=== PATIENT | male | born 1985 | race Caucasian/White ===

== ENCOUNTER 2018-11-28 03:08 | Observation (INO) | payer BC, OTHER ==
[2018-11-28] MEDS ORDERED: Sodium Chloride 0.9% 10 ML Syringe FLUSH PRN (03:28)
[2018-11-28] MEDS ORDERED: Sodium Chloride 0.9% 2.5 ML Syringe FLUSH PRN (03:28)
[2018-11-28] MEDS ORDERED: Ketorolac 30 MG/ML SDV IVPUSH ONE (03:29)
[2018-11-28] MEDS ORDERED: Sodium Chloride 0.9% 1,000 ML IV ONE (03:29)
[2018-11-28] MEDS ORDERED: Morphine 2 MG/ML Syringe IVPUSH ONE (03:33)
[2018-11-28] MEDS ORDERED: Ondansetron 4 MG/2 ML SDV IVPUSH ONE (03:34)
--- NOTE | 2018-11-28 03:39 | EDM.PDOC ---
ED HPI GENERAL MEDICAL PROBLEM - General Chief Complaint: Abdominal Pain Stated Complaint: FEVER, LOWER ABDOMINAL PAIN Time Seen by Provider: 11/28/18 03:09 - History of Present Illness INITIAL COMMENTS - FREE TEXT/NARRATIVE: HISTORY AND PHYSICAL: History of present illness: The patient is a 33-year-old male who has no significant GI history but does have a history of hypertension as well as inguinal hernia repair when he was 1 years old and a lap band placement and removal in the past who presents to the ED with complaints of overall ill feeling right lower quadrant pain and fevers that started about 2 PM yesterday afternoon. The patient said that initially he felt like it was gas but it seems more severe than usual but he did take an over -the-counter medication prep for this and it did not help. He noticed that he was having fevers and has been taking Tylenol for that with a documented temp of 104 at 9 PM and a temp of "106" an hour or so ago for which she took extra strength Tylenol and is now afebrile. The patient had no cough or upper respiratory tract infection symptoms sore throat headache neck pain ear pain or sinus congestion but no chest pain or shortness of breath. He said he didn't have any nausea vomiting or diarrhea no flank pain and no urinary complaints. He said that he's had similar pain to what he was experiencing this afternoon but not as severe in the past when he had food poisoning which is why he took the [id number] preps for gas and antidiarrhea. He went to sleep and woke up and morning with intense pain in the right lower quadrant radiating to left lower quadrant and left mid abdomen and came here to the ED. He says the pain is a stabbing pain in his deep. He's had no recent trauma. The patient denies any testicular pain or swelling nor any hernial masses that he is appreciated. The patient's last by mouth intake was a hot chocolate drink at 8:30 PM prior to that he had some salad. Review of systems: As per history of present illness and below otherwise all systems reviewed and negative. Past medical history: As per history of present illness and as reviewed below otherwise noncontributory. Surgical history: As per history of present illness and as reviewed below otherwise noncontributory. Social history: No reported history of drug or alcohol abuse. Family history: As per history of present illness and as reviewed below otherwise noncontributory. Physical exam: General: Well-developed well-nourished mildly overweight man who is nontoxic and moves easily in the ED has a somewhat flushed look to his face. Vital signs are noted by me. HEENT: Atraumatic, normocephalic, negative for conjunctival pallor or scleral icterus, mucous membranes tacky throat clear, neck supple, nontender, trachea midline. Lungs: Clear to auscultation, breath sounds equal bilaterally, chest nontender. Heart: S1S2, regular rhythm slightly tachycardic rate on my evaluation but no overt murmurs Abdomen: Soft, nondistended, bowel sounds are hypoactive and there is no tympany on percussion and there is mild diffuse tenderness throughout the abdomen but more exquisite tenderness in the right lower quadrant without any rebound or guarding. Negative for masses or hepatosplenomegaly. Negative for costovertebral tenderness. I do not appreciate any inguinal tenderness bilaterally or any gross hernial masses. Pelvis: Stable nontender. Genitourinary: Deferred. Rectal: Deferred. Extremities: Atraumatic, negative for cords or calf pain. Neurovascular unremarkable. No pedal edema and full range of motion Neuro: Awake, alert, oriented. Cranial nerves II through XII unremarkable. Cerebellum unremarkable. Motor and sensory unremarkable throughout. Exam nonfocal. Diagnostics: CBC CMP UA with reflex, lactic acid CT scan of the abdomen and pelvis Therapeutics: IV, IV fluids, Toradol Zofran and morphine, Levaquin and Flagyl 0513: Case was discussed with our surgeon mortgage operations manager Dr. Kyle Arriaza will be on consult and I will notify Dr. Mittal's admission 0515: Case was discussed with Dr. Mittal who accepts the patient for observation admission and is aware of the case. I've also discussed all testing results with the patient including the need for admission and his incidental disc herniation. His pain is much improved and he remains afebrile here in the ED Impression: Acute sigmoid diverticulitis Incidental posterior disc herniation out L4-L5 asymptomatic Definitive disposition and diagnosis as appropriate pending reevaluation and review of above. abdomen Pain Score (Numeric/FACES): 6 - Related Data Allergies Allergy/AdvReac Type Severity Reaction Status Date / Time prednisone Allergy Hives Verified 09/13/19 03:22 Home Meds: Home Meds Hydrochlorothiazide [Microzide] 12.5 mg PO DAILY 01/17/18 [History] Lisinopril 40 mg PO DAILY 01/17/18 [History] amLODIPine Besylate [Amlodipine Besylate] 10 mg PO DAILY 01/17/18 [History] Diclofenac Sodium [Voltaren] 75 mg PO BID PRN 11/28/18 [History] Past Medical History Cardiovascular History: Reports: Hypertension Respiratory History: Reports: Sleep Apnea Other Respiratory History: "mild sleep apnea" does not use CPAP, snores when on his back Gastrointestinal History: Reports: None Genitourinary History: Reports: None Musculoskeletal History: Reports: Back Pain, Chronic Neurological History: Reports: None Endocrine/Metabolic History: Reports: Obesity/BMI 30+ Immunologic History: Reports: Other (See Below) Other Immunologic History: 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, completely recovered - Infectious Disease History Infectious Disease History: Reports: Chicken Pox - Past Surgical History Head Surgeries/Procedures: Reports: None Cardiovascular Surgical History: Reports: None Respiratory Surgical History: Reports: None GI Surgical History: Reports: Bariatric Procedure Other GI Surgeries/Procedures: lap band placement 2008, removal of lap band 2017 Male Surgical History: Reports: None Endocrine Surgical History: Reports: None Musculoskeletal Surgical History: Reports: Arthroscopic Knee, Shoulder Surgery Other Musculoskeletal Surgeries/Procedures:: left labrum repair, left knee arthroscopy, L sholuder Social & Family History - Family History Family Medical History: Unobtainable - Tobacco Use Smoking Status *Q: Never Smoker Second Hand Smoke Exposure: No - Caffeine Use Caffeine Use: Reports: Energy Drinks - Recreational Drug Use Recreational Drug Use: No ED ROS GENERAL - Review of Systems Review Of Systems: ROS reveals no pertinent complaints other than HPI. ED EXAM, GENERAL - Physical Exam Exam: See Below (See dictation) Course - Vital Signs Last Recorded V/S: Last Vital Signs Temp 36.1 C 11/28/18 04:33 Pulse 92 11/28/18 04:33 Resp 18 11/28/18 04:33 BP 136/91 H 11/28/18 04:33 Pulse Ox 98 11/28/18 04:33 - Orders/Labs/Meds Orders: Active Orders 24 hr Category Date Time Status Levofloxacin/Dextrose 5%-Water [Levaquin in D5W 500 MG/ Med 11/28/18 05:09 Active 100 ML] 500 mg Premix Bag 1 bag IV ONETIME Sodium Chloride 0.9% [Saline Flush] Med 11/28/18 03:28 Active 10 ml FLUSH ASDIRECTED PRN Sodium Chloride 0.9% [Saline Flush] Med 11/28/18 03:28 Active 2.5 ml FLUSH ASDIRECTED PRN metroNIDAZOLE/Normal Saline [Flagyl 500 MG in NS 100 ML Med 11/28/18 05:09 Active ] 500 mg Premix Bag 1 bag IV ONETIME Saline Lock Insert [OM.PC] Stat Oth 11/28/18 03:28 Ordered Medication Orders Levofloxacin/Dextrose 500 mg/ (Premix) 100 mls @ 100 mls/hr IV ONETIME ONE Stop: 11/28/18 06:08 Metronidazole 500 mg/ Premix 100 mls @ 100 mls/hr IV ONETIME ONE Stop: 11/28/18 06:08 Sodium Chloride (Saline Flush) 10 ml FLUSH ASDIRECTED PRN PRN Reason: Keep Vein Open Sodium Chloride (Saline Flush) 2.5 ml FLUSH ASDIRECTED PRN PRN Reason: Keep Vein Open Labs: Laboratory Tests 11/28/18 11/28/18 11/28/18 Range/Units 03:25 03:25 03:25 WBC 15.80 H (4.0-11.0) K/uL RBC 5.53 (4.50-5.90) M/uL Hgb 15.8 (13.0-17.0) g/dL Hct 45.6 (38.0-50.0) % MCV 82.5 (80.0-98.0) fL MCH 28.6 (27.0-32.0) pg MCHC 34.6 (31.0-37.0) g/dL RDW Std Deviation 42.2 (28.0-62.0) fl RDW Coeff of Miguelangel 14 (11.0-15.0) % Plt Count 216 (150-400) K/uL MPV 10.50 (7.40-12.00) fL Neut % (Auto) 69.0 (48.0-80.0) % Lymph % (Auto) 21.7 (16.0-40.0) % Foster % (Auto) 7.8 (0.0-15.0) % Eos % (Auto) 1.2 (0.0-7.0) % Baso % (Auto) 0.3 (0.0-1.5) % Neut # (Auto) 10.9 H (1.4-5.7) K/uL Lymph # (Auto) 3.4 H (0.6-2.4) K/uL Foster # (Auto) 1.2 H (0.0-0.8) K/uL Eos # (Auto) 0.2 (0.0-0.7) K/uL Baso # (Auto) 0.0 (0.0-0.1) K/uL Nucleated RBC % 0.0 /100WBC Nucleated RBCs # 0 K/uL Lactate 1.3 (0.20-2.00) mmol/L Sodium 139 (136-148) mmol/L Potassium 4.3 (3.5-5.1) mmol/L Chloride 101 (98-107) mmol/L Carbon Dioxide 24.4 (21.0-32.0) mmol/L BUN 13 (7.0-18.0) mg/dL Creatinine 1.0 (0.8-1.3) mg/dL Est Cr Clr Drug Dosing 117.63 mL/min Estimated GFR (MDRD) > 60.0 ml/min Glucose 120 H (74-106) mg/dL Calcium 10.2 H (8.5-10.1) mg/dL Total Bilirubin 0.9 (0.2-1.0) mg/dL AST 40 H (15-37) IU/L ALT 67 H (14-63) IU/L Alkaline Phosphatase 68 (46-116) U/L Total Protein 8.0 (6.4-8.2) g/dL Albumin 4.2 (3.4-5.0) g/dL Globulin 3.8 (2.6-4.0) g/dL Albumin/Globulin Ratio 1.1 (0.9-1.6) Urine Color Urine Appearance Urine pH (5.0-8.0) Ur Specific [place] (1.001-1.035) Urine Protein (NEGATIVE) mg/dL Urine Glucose (UA) (NEGATIVE) mg/dL Urine Ketones (NEGATIVE) mg/dL Urine Occult Blood (NEGATIVE) Urine Nitrite (NEGATIVE) Urine Bilirubin (NEGATIVE) Urine Urobilinogen (<2.0) EU/dL Ur Leukocyte Esterase (NEGATIVE) Urine RBC (0-2/HPF) Urine WBC (0-5/HPF) Ur Epithelial Cells (NONE-FEW) Urine Bacteria (NEGATIVE) 11/28/18 Range/Units 03:25 WBC (4.0-11.0) K/uL RBC (4.50-5.90) M/uL Hgb (13.0-17.0) g/dL Hct (38.0-50.0) % MCV (80.0-98.0) fL MCH (27.0-32.0) pg MCHC (31.0-37.0) g/dL RDW Std Deviation (28.0-62.0) fl RDW Coeff of Miguelangel (11.0-15.0) % Plt Count (150-400) K/uL MPV (7.40-12.00) fL Neut % (Auto) (48.0-80.0) % Lymph % (Auto) (16.0-40.0) % Foster % (Auto) (0.0-15.0) % Eos % (Auto) (0.0-7.0) % Baso % (Auto) (0.0-1.5) % Neut # (Auto) (1.4-5.7) K/uL Lymph # (Auto) (0.6-2.4) K/uL Foster # (Auto) (0.0-0.8) K/uL Eos # (Auto) (0.0-0.7) K/uL Baso # (Auto) (0.0-0.1) K/uL Nucleated RBC % /100WBC Nucleated RBCs # K/uL Lactate (0.20-2.00) mmol/L Sodium (136-148) mmol/L Potassium (3.5-5.1) mmol/L Chloride (98-107) mmol/L Carbon Dioxide (21.0-32.0) mmol/L BUN (7.0-18.0) mg/dL Creatinine (0.8-1.3) mg/dL Est Cr Clr Drug Dosing mL/min Estimated GFR (MDRD) ml/min Glucose (74-106) mg/dL Calcium (8.5-10.1) mg/dL Total Bilirubin (0.2-1.0) mg/dL AST (15-37) IU/L ALT (14-63) IU/L Alkaline Phosphatase (46-116) U/L Total Protein (6.4-8.2) g/dL Albumin (3.4-5.0) g/dL Globulin (2.6-4.0) g/dL Albumin/Globulin Ratio (0.9-1.6) Urine Color YELLOW Urine Appearance CLEAR Urine pH 6.0 (5.0-8.0) Ur Specific [place] 1.010 (1.001-1.035) Urine Protein TRACE H (NEGATIVE) mg/dL Urine Glucose (UA) NEGATIVE (NEGATIVE) mg/dL Urine Ketones NEGATIVE (NEGATIVE) mg/dL Urine Occult Blood NEGATIVE (NEGATIVE) Urine Nitrite NEGATIVE (NEGATIVE) Urine Bilirubin NEGATIVE (NEGATIVE) Urine Urobilinogen 0.2 (<2.0) EU/dL Ur Leukocyte Esterase NEGATIVE (NEGATIVE) Urine RBC NONE SEEN (0-2/HPF) Urine WBC NONE SEEN (0-5/HPF) Ur Epithelial Cells RARE (NONE-FEW) Urine Bacteria NOT SEEN (NEGATIVE) Meds: Medications Generic Name Dose Route Start Last Admin Trade Name Freq PRN Reason Stop Dose Admin Levofloxacin/Dextrose 500 mg/ 100 mls @ 100 mls/hr 11/28/18 05:09 Premix IV 11/28/18 06:08 ONETIME ONE Metronidazole 500 mg/ Premix 100 mls @ 100 mls/hr 11/28/18 05:09 IV 11/28/18 06:08 ONETIME ONE Sodium Chloride 10 ml 11/28/18 03:28 Saline Flush FLUSH ASDIRECTED PRN Keep Vein Open Sodium Chloride 2.5 ml 11/28/18 03:28 Saline Flush FLUSH ASDIRECTED PRN Keep Vein Open Discontinued Medications Generic Name Dose Route Start Last Admin Trade Name Freq PRN Reason Stop Dose Admin Sodium Chloride 1,000 mls @ 999 mls/hr 11/28/18 03:29 11/28/18 03:40 Normal Saline IV 11/28/18 04:29 999 mls/hr STAT ONE Administration Iopamidol 100 ml 11/28/18 04:23 11/28/18 04:24 Isovue Multipack-370 (76%) IVPUSH 11/28/18 04:24 100 ml ONETIME STA Administration Ketorolac Tromethamine 30 mg 11/28/18 03:29 11/28/18 03:40 Toradol IVPUSH 11/28/18 03:30 30 mg ONETIME ONE Administration Morphine Sulfate 4 mg 11/28/18 03:33 11/28/18 03:42 Morphine IVPUSH 11/28/18 03:34 4 mg ONETIME ONE Administration Ondansetron HCl 4 mg 11/28/18 03:34 11/28/18 03:40 Zofran IVPUSH 11/28/18 03:35 4 mg ONETIME ONE Administration Departure - Departure Time of Disposition: 05:15 Disposition: Refer to Observation Condition: Good Clinical Impression: Diverticulitis - Discharge Information Referrals: Dragan Waite MD [Primary Care Provider] - Forms: ED Department Discharge - My Orders Last 24 Hours: My Active Orders 11/28/18 03:28 Sodium Chloride 0.9% [Saline Flush] 10 ml FLUSH ASDIRECTED PRN Sodium Chloride 0.9% [Saline Flush] 2.5 ml FLUSH ASDIRECTED PRN Saline Lock Insert [OM.PC] Stat 11/28/18 05:09 Levofloxacin/Dextrose 5%-Water [Levaquin in D5W 500 MG/100 ML] 500 mg Premix Bag 1 bag IV ONETIME metroNIDAZOLE/Normal Saline [Flagyl 500 MG in NS 100 ML] 500 mg Premix Bag 1 bag IV ONETIME - Assessment/Plan Last 24 Hours: My Active Orders 11/28/18 03:28 Sodium Chloride 0.9% [Saline Flush] 10 ml FLUSH ASDIRECTED PRN Sodium Chloride 0.9% [Saline Flush] 2.5 ml FLUSH ASDIRECTED PRN Saline Lock Insert [OM.PC] Stat 11/28/18 05:09 Levofloxacin/Dextrose 5%-Water [Levaquin in D5W 500 MG/100 ML] 500 mg Premix Bag 1 bag IV ONETIME metroNIDAZOLE/Normal Saline [Flagyl 500 MG in NS 100 ML] 500 mg Premix Bag 1 bag IV ONETIME
[2018-11-28 03:58] LABS: BLOOD UREA NITROGEN,BUN 13 mg/dL (7.0-18.0); CARBON DIOXIDE,CO2 24.4 mmol/L (21.0-32.0); CHLORIDE,CL 101 mmol/L (98-107); GLUCOSE RANDOM 120 mg/dL (74-106); POTASSIUM,K 4.3 mmol/L (3.5-5.1); SODIUM,NA 139 mmol/L (136-148)
[2018-11-28] MEDS ORDERED: Iopamidol 755 MG/ML 500 ML Multipack Bottle IVPUSH STA (04:23)
--- NOTE | 2018-11-28 05:02 | CT ---
INDICATION: Lower abdominal pain TECHNIQUE: CT Abdomen and pelvis with i.v. contrast. Coronal and sagittal reformats were obtained. CONTRAST: 100 mL Isovue 370 COMPARISON: None FINDINGS: Lower chest: Unremarkable. Ill-defined soft tissue is seen in the retroareolar complexes of the chest bilaterally and most likely due to gynecomastia. Liver: Moderate fatty infiltration of the liver is noted. Spleen: Unremarkable. Pancreas: Unremarkable. Gallbladder: Unremarkable. Kidney: Unremarkable. No kidney or ureteral stones or obstruction seen. Adrenal: Unremarkable. Bowel: Severe wall thickening with surrounding inflammatory changes and diverticulosis is seen in the proximal sigmoid colon. The wall thickening has scattered low densities with possible shouldering on image 141. The appendix is normal in appearance and size. Vascular: Unremarkable. Lymph: Unremarkable. Peritoneum: Unremarkable. No pneumoperitoneum is seen. No significant ascites is noted. Pelvis: Unremarkable. Soft tissue: Unremarkable. Bone: Bilateral chronic pars defects of L5 noted with no significant anterolisthesis of L5-S1 noted. A large posterior disc osteophyte complex is present at L4-5 with trace retrolisthesis. These findings contribute to central canal stenosis. IMPRESSIONS: 1. Severe wall thickening with surrounding inflammatory changes and diverticulosis is seen in the proximal sigmoid colon. Findings likely due to acute diverticulitis. 2. The wall thickening has scattered low densities with possible shouldering on image 141. This may be due to inflammatory phlegmon. Imaging follow-up may be helpful to exclude subsequent development of peridiverticular or intramural abscesses or underlying mucosal abnormalities. 3. A large posterior disc osteophyte complex is present at L4-5 with trace retrolisthesis. These findings contribute to central canal stenosis. Dictated by Delvin Almazan MD @ 11/28/2018 5:01:47 AM Please note that all CT scans at this facility use dose modulation, iterative reconstruction, and/or weight-based dosing when appropriate to reduce radiation dose to as low as reasonably achievable. Dictated by: Delvin Almazan MD @ 11/28/2018 05:01:53 (Electronically Signed)
[2018-11-28] MEDS ORDERED: Levofloxacin/Dextrose 5%-Water 500 MG in Premix Bag 1 BAG IV ONE (05:09)
[2018-11-28] MEDS ORDERED: metroNIDAZOLE/Normal Saline 500 MG in Premix Bag 1 BAG IV ONE (05:09)
[2018-11-28] MEDS: Sodium Chloride 0.9% 1,000 ML IV SCH ×3 (05:39→15:29)
[2018-11-28] MEDS ORDERED: Morphine 2 MG/ML Syringe IVPUSH PRN (06:44)
--- NOTE | 2018-11-28 06:51 | PCM.HP.2 ---
H&P History of Present Illness - General Date of Service: 11/28/18 Admit Problem/Dx: Admission Diagnosis/Problem Admission Diagnosis/Problem Diverticulitis Source of Information: Patient History Limitations: Reports: No Limitations - History of Present Illness Initial Comments - Free Text/Narative: The patient is an otherwise healthy 33-year-old gentleman who had presented to the emergency department with a complaint of fever and lower abdominal pain. The patient reports that he had a significant fever at home and had been tested at 106F. Further, the patient reports that he had lower abdominal pain which started approximately 2 days ago and had begin progressively worse. He is described as sharp and stabbing and is predominantly in the lower right quadrant radiate into the lower left quadrant and mid abdomen. When the patient awoke this morning the pain was more intense. The patient had denied any nausea or vomiting. He's had no diarrhea or constipation although he feels like he is to have a bowel movement. The patient has had no relieving factors and his abdominal pain is been worsened by eating. The patient has been taking medication for hypertension but otherwise is healthy. Onset of Symptoms: Reports: Sudden Duration of Symptoms: Reports: Day(s):, Getting Worse Location: Reports: Abdomen Quality: Reports: Stabbing, Throbbing Severity: Moderate Improves with: Reports: Rest Worsens with: Reports: Eating, Movement Associated Symptoms: Reports: Fever/Chills, Loss of Appetite abdomen Pain Score (Numeric/FACES): 6 - Related Data Allergies/Adverse Reactions: Allergies Allergy/AdvReac Type Severity Reaction Status Date / Time prednisone Allergy Hives Verified 11/28/18 06:18 Home Medications: Home Meds Hydrochlorothiazide [Microzide] 12.5 mg PO DAILY 01/17/18 [History] Lisinopril 40 mg PO DAILY 01/17/18 [History] amLODIPine Besylate [Amlodipine Besylate] 10 mg PO DAILY 01/17/18 [History] Diclofenac Sodium [Voltaren] 75 mg PO BID PRN 11/28/18 [History] [place] [[place]] 565 mg PO DAILY 11/28/18 [History] Past Medical History HEENT History: Reports: None Cardiovascular History: Reports: Hypertension Respiratory History: Reports: Sleep Apnea Other Respiratory History: "mild sleep apnea" does not use CPAP, snores when on his back Gastrointestinal History: Reports: None Genitourinary History: Reports: None Musculoskeletal History: Reports: Back Pain, Chronic Neurological History: Reports: None Psychiatric History: Reports: None Endocrine/Metabolic History: Reports: Obesity/BMI 30+ Hematologic History: Reports: None Immunologic History: Reports: Other (See Below) Other Immunologic History: 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, completely recovered Oncologic (Cancer) History: Reports: None Dermatologic History: Reports: None - Infectious Disease History Infectious Disease History: Reports: Chicken Pox - Past Surgical History Head Surgeries/Procedures: Reports: None Cardiovascular Surgical History: Reports: None Respiratory Surgical History: Reports: None GI Surgical History: Reports: Bariatric Procedure Other GI Surgeries/Procedures: lap band placement 2008, removal of lap band 2017 Male Surgical History: Reports: None Endocrine Surgical History: Reports: None Musculoskeletal Surgical History: Reports: Arthroscopic Knee, Shoulder Surgery Other Musculoskeletal Surgeries/Procedures:: left labrum repair, left knee arthroscopy, L sholuder Social & Family History - Family History Family Medical History: Unobtainable - Tobacco Use Smoking Status *Q: Never Smoker Second Hand Smoke Exposure: No - Caffeine Use Caffeine Use: Reports: Energy Drinks - Alcohol Use Alcohol Use History: No - Recreational Drug Use Recreational Drug Use: No - Living Situation & Occupation Living situation: Reports: , with Family Occupation: Employed H&P Review of Systems - Review of Systems: Review Of Systems: See Below General: Reports: Fever, Chills, Decreased Appetite HEENT: Reports: No Symptoms Pulmonary: Reports: No Symptoms Cardiovascular: Reports: No Symptoms Gastrointestinal: Reports: Abdominal Pain, Constipation, Decreased Appetite. Denies: Hematemesis, Hematochezia, Nausea, Vomiting Genitourinary: Reports: No Symptoms Musculoskeletal: Reports: Back Pain Skin: Reports: No Symptoms Psychiatric: Reports: No Symptoms Neurological: Reports: No Symptoms Hematologic/Lymphatic: Reports: No Symptoms Immunologic: Reports: No Symptoms Exam - Exam Exam: See Below - Vital Signs Vital Signs: Last Vital Signs Temp 36.6 C 11/28/18 06:04 Pulse 94 11/28/18 06:04 Resp 18 11/28/18 06:04 BP 136/89 11/28/18 06:04 Pulse Ox 95 11/28/18 06:04 Weight: 142.292 kg - Exam Quality Assessment: No: Supplemental Oxygen General: Alert, Oriented, Cooperative, Mild Distress HEENT: Conjunctiva Clear, EACs Clear, EOMI, Mucosa Moist & [place], Pupils Equal, PERRLA Neck: Supple, Trachea Midline Lungs: Clear to Auscultation, Normal Respiratory Effort Cardiovascular: Regular Rate, Regular Rhythm GI/Abdominal Exam: Normal Bowel Sounds, Soft, No Distention, Tender. No: Guarding, Rigid, Rebound Back Exam: Normal Inspection, Full Range of Motion Extremities: Normal Inspection, No Pedal Edema Skin: Warm, Dry, Intact Neurological: Cranial Nerves Intact, Normal Gait, Normal Speech Psychiatric: Alert, Normal Affect, Normal Mood - Patient Data Lab Results Last 24 hrs: Laboratory Results - last 24 hr 11/28/18 11/28/18 11/28/18 Range/Units 03:25 03:25 03:25 WBC 15.80 H (4.0-11.0) K/uL RBC 5.53 (4.50-5.90) M/uL Hgb 15.8 (13.0-17.0) g/dL Hct 45.6 (38.0-50.0) % MCV 82.5 (80.0-98.0) fL MCH 28.6 (27.0-32.0) pg MCHC 34.6 (31.0-37.0) g/dL RDW Std Deviation 42.2 (28.0-62.0) fl RDW Coeff of Miguelangel 14 (11.0-15.0) % Plt Count 216 (150-400) K/uL MPV 10.50 (7.40-12.00) fL Neut % (Auto) 69.0 (48.0-80.0) % Lymph % (Auto) 21.7 (16.0-40.0) % Hand % (Auto) 7.8 (0.0-15.0) % Eos % (Auto) 1.2 (0.0-7.0) % Baso % (Auto) 0.3 (0.0-1.5) % Neut # (Auto) 10.9 H (1.4-5.7) K/uL Lymph # (Auto) 3.4 H (0.6-2.4) K/uL [place] # (Auto) 1.2 H (0.0-0.8) K/uL Eos # (Auto) 0.2 (0.0-0.7) K/uL Baso # (Auto) 0.0 (0.0-0.1) K/uL Nucleated RBC % 0.0 /100WBC Nucleated RBCs # 0 K/uL Lactate 1.3 (0.20-2.00) mmol/L Sodium 139 (136-148) mmol/L Potassium 4.3 (3.5-5.1) mmol/L Chloride 101 (98-107) mmol/L Carbon Dioxide 24.4 (21.0-32.0) mmol/L BUN 13 (7.0-18.0) mg/dL Creatinine 1.0 (0.8-1.3) mg/dL Est Cr Clr Drug Dosing 117.63 mL/min Estimated GFR (MDRD) > 60.0 ml/min Glucose 120 H (74-106) mg/dL Calcium 10.2 H (8.5-10.1) mg/dL Total Bilirubin 0.9 (0.2-1.0) mg/dL AST 40 H (15-37) IU/L ALT 67 H (14-63) IU/L Alkaline Phosphatase 68 (46-116) U/L Total Protein 8.0 (6.4-8.2) g/dL Albumin 4.2 (3.4-5.0) g/dL Globulin 3.8 (2.6-4.0) g/dL Albumin/Globulin Ratio 1.1 (0.9-1.6) Urine Color Urine Appearance Urine pH (5.0-8.0) Ur Specific [place] (1.001-1.035) Urine Protein (NEGATIVE) mg/dL Urine Glucose (UA) (NEGATIVE) mg/dL Urine Ketones (NEGATIVE) mg/dL Urine Occult Blood (NEGATIVE) Urine Nitrite (NEGATIVE) Urine Bilirubin (NEGATIVE) Urine Urobilinogen (<2.0) EU/dL Ur Leukocyte Esterase (NEGATIVE) Urine RBC (0-2/HPF) Urine WBC (0-5/HPF) Ur Epithelial Cells (NONE-FEW) Urine Bacteria (NEGATIVE) 11/28/18 Range/Units 03:25 WBC (4.0-11.0) K/uL RBC (4.50-5.90) M/uL Hgb (13.0-17.0) g/dL Hct (38.0-50.0) % MCV (80.0-98.0) fL MCH (27.0-32.0) pg MCHC (31.0-37.0) g/dL RDW Std Deviation (28.0-62.0) fl RDW Coeff of Miguelangel (11.0-15.0) % Plt Count (150-400) K/uL MPV (7.40-12.00) fL Neut % (Auto) (48.0-80.0) % Lymph % (Auto) (16.0-40.0) % Hand % (Auto) (0.0-15.0) % Eos % (Auto) (0.0-7.0) % Baso % (Auto) (0.0-1.5) % Neut # (Auto) (1.4-5.7) K/uL Lymph # (Auto) (0.6-2.4) K/uL Hand # (Auto) (0.0-0.8) K/uL Eos # (Auto) (0.0-0.7) K/uL Baso # (Auto) (0.0-0.1) K/uL Nucleated RBC % /100WBC Nucleated RBCs # K/uL Lactate (0.20-2.00) mmol/L Sodium (136-148) mmol/L Potassium (3.5-5.1) mmol/L Chloride (98-107) mmol/L Carbon Dioxide (21.0-32.0) mmol/L BUN (7.0-18.0) mg/dL Creatinine (0.8-1.3) mg/dL Est Cr Clr Drug Dosing mL/min Estimated GFR (MDRD) ml/min Glucose (74-106) mg/dL Calcium (8.5-10.1) mg/dL Total Bilirubin (0.2-1.0) mg/dL AST (15-37) IU/L ALT (14-63) IU/L Alkaline Phosphatase (46-116) U/L Total Protein (6.4-8.2) g/dL Albumin (3.4-5.0) g/dL Globulin (2.6-4.0) g/dL Albumin/Globulin Ratio (0.9-1.6) Urine Color YELLOW Urine Appearance CLEAR Urine pH 6.0 (5.0-8.0) Ur Specific [place] 1.010 (1.001-1.035) Urine Protein TRACE H (NEGATIVE) mg/dL Urine Glucose (UA) NEGATIVE (NEGATIVE) mg/dL Urine Ketones NEGATIVE (NEGATIVE) mg/dL Urine Occult Blood NEGATIVE (NEGATIVE) Urine Nitrite NEGATIVE (NEGATIVE) Urine Bilirubin NEGATIVE (NEGATIVE) Urine Urobilinogen 0.2 (<2.0) EU/dL Ur Leukocyte Esterase NEGATIVE (NEGATIVE) Urine RBC NONE SEEN (0-2/HPF) Urine WBC NONE SEEN (0-5/HPF) Ur Epithelial Cells RARE (NONE-FEW) Urine Bacteria NOT SEEN (NEGATIVE) Result Diagrams: 11/28/18 03:25 11/28/18 03:25 - Problem List (1) Diverticulitis SNOMED Code(s): 972181288 ICD Code: K57.92 - DVTRCLI OF INTEST, PART UNSP, W/O PERF OR ABSCESS W/O BLEED Status: Acute Priority: High Current Visit: Yes (2) Hypertension SNOMED Code(s): 85443178 ICD Code: I10 - ESSENTIAL (PRIMARY) HYPERTENSION Status: Chronic Priority : High Current Visit: Yes Qualifiers: Hypertension type: essential hypertension Qualified Code(s): I10 - Essential (primary) hypertension (3) Obesity, Class III, BMI 40-49.9 (morbid obesity) SNOMED Code(s): 020222168, 910062729, 98963789943123 ICD Code: E66.01 - MORBID (SEVERE) OBESITY DUE TO EXCESS CALORIES Status: Chronic Priority: Medium Current Visit: Yes Problem List Initiated/Reviewed/Updated: Yes Orders Last 24hrs: Active Orders 24 hr Category Date Time Status Patient Status [ADT] Stat ADT 11/28/18 05:17 Active Notify Provider Consults [RC] ASDIRECTED Care 11/28/18 05:17 Active Oxygen Therapy [RC] PRN Care 11/28/18 06:44 Active Up ad [place]agan [RC] ASDIRECTED Care 11/28/18 06:44 Active VTE/DVT Education [RC] PER UNIT ROUTINE Care 11/28/18 06:44 Active Vital Signs [RC] Q4H Care 11/28/18 06:44 Active Consult to Physician [CONS] Stat Cons 11/28/18 05:17 Active Nothing per Oral Now Diet [DIET] Diet 11/28/18 Breakfast Active CBC WITH AUTO DIFF [HEME] AM Lab 11/29/18 05:11 Ordered COMPREHENSIVE METABOLIC PN,CMP [CHEM] AM Lab 11/29/18 05:11 Ordered Enoxaparin [Lovenox] Med 11/28/18 07:00 Active 40 mg SUBCUT Q24H Levofloxacin/Dextrose 5%-Water [Levaquin in D5W 500 MG/ Med 11/28/18 07:00 Active 100 ML] 500 mg Premix Bag 1 bag IV Q24H Lisinopril [Lisinopril] Med 11/28/18 09:00 Ordered 40 mg PO DAILY Morphine Med 11/28/18 06:44 Ordered 2 mg IVPUSH Q2H PRN Sodium Chloride 0.9% [Normal Saline] 1,000 ml Med 11/28/18 05:30 Active IV ASDIRECTED Sodium Chloride 0.9% [Normal Saline] 1,000 ml Med 11/28/18 06:45 Active IV ASDIRECTED Sodium Chloride 0.9% [Saline Flush] Med 11/28/18 03:28 Active 10 ml FLUSH ASDIRECTED PRN Sodium Chloride 0.9% [Saline Flush] Med 11/28/18 03:28 Active 2.5 ml FLUSH ASDIRECTED PRN amLODIPine [Norvasc] Med 11/28/18 09:00 Active 10 mg PO DAILY hydroCHLOROthiazide Med 11/28/18 09:00 Active 12.5 mg PO DAILY metroNIDAZOLE/Normal Saline [Flagyl 500 MG in NS 100 ML Med 11/28/18 12:00 Active ] 500 mg Premix Bag 1 bag IV QID Saline Lock Insert [OM.PC] Stat Oth 11/28/18 03:28 Ordered Resuscitation Status Routine Resus Stat 11/28/18 06:44 Ordered Medication Orders Amlodipine Besylate (Norvasc) 10 mg PO DAILY TANI Enoxaparin Sodium (Lovenox) 40 mg SUBCUT Q24H TANI Hydrochlorothiazide (Hydrochlorothiazide) 12.5 mg PO DAILY TANI Sodium Chloride (Normal Saline) 1,000 mls @ 150 mls/hr IV ASDIRECTED TANI Last Admin: 11/28/18 05:39 Dose: 150 mls/hr Sodium Chloride (Normal Saline) 1,000 mls @ 125 mls/hr IV ASDIRECTED TANI Levofloxacin/Dextrose 500 mg/ (Premix) 100 mls @ 100 mls/hr IV Q24H TANI Metronidazole 500 mg/ Premix 100 mls @ 100 mls/hr IV QID TANI Morphine Sulfate (Morphine) 2 mg IVPUSH Q2H PRN PRN Reason: Pain (severe 7-10) Stop: 11/29/18 06:45 Non-Formulary Medication (Lisinopril [Lisinopril]) 40 mg PO DAILY COUNTS INCLUDE 234 BEDS AT THE [facility] Sodium Chloride (Saline Flush) 10 ml FLUSH ASDIRECTED PRN PRN Reason: Keep Vein Open Sodium Chloride (Saline Flush) 2.5 ml FLUSH ASDIRECTED PRN PRN Reason: Keep Vein Open Assessment/Plan Comment:: The patient is a 33-year-old gentleman who had been admitted to observation secondary to diverticulitis. The patient has been afebrile here. The patient also has been consulted with surgeon. For now we'll continue the patient on Levaquin 500 milligrams IV daily as well as Flagyl 500 mg 4 times a day. The patient will be kept nothing by mouth except for ice chips and medications. The patient will also have his vital signs monitored every 4 hours and he has been continued on his antihypertensive medications. His medications will be adjusted as needed. Patient is also having pain control with the use of IV morphine for now. He'll also be anticoagulated with Lovenox at 30 mg subcutaneous on a daily basis. The patient has been encouraged to ambulate. The patient will have repeat laboratory studies. He should be appropriate for discharge in 1-2 days. - Mortality Measure Prognosis:: Good
[2018-11-28] MEDS ORDERED: Levofloxacin/Dextrose 5%-Water 500 MG in Premix Bag 1 BAG IV SCH (07:00)
[2018-11-28] MEDS: Enoxaparin 40 MG/0.4 ML Syringe SUBCUT SCH (07:39)
--- NOTE | 2018-11-28 07:47 | PCM.CONS ---
H&P History of Present Illness - General Date of Service: 11/28/18 Admit Problem/Dx: Admission Diagnosis/Problem Admission Diagnosis/Problem Diverticulitis Source of Information: Patient History Limitations: Reports: No Limitations - History of Present Illness Initial Comments - Free Text/Narative: Patient is a 33 year old male who presents with abdominal pain and fevers. He has never had any symptoms like this before. He had a normal meal last night. He had a BM before bed which was difficult to pass. He denies melena or hematochezia. He had increasing abdominal pain through the night and a high fever at home. He presented to the ED. He was found to be tachycardic. His WBC was elevated at 15K. A CT scan of the abdomen pelvis showed severe thickening of the proximal sigmoid consistent with acute diverticulitis with associated phlegmon.He was given IV fluids and IV antibiotics in the ER and admitted to the medicine service. His tachycardia resolved. abdomen Pain Score (Numeric/FACES): 6 - Related Data Allergies/Adverse Reactions: Allergies Allergy/AdvReac Type Severity Reaction Status Date / Time prednisone Allergy Hives Verified 11/28/18 06:18 Home Medications: Home Meds Hydrochlorothiazide [Microzide] 12.5 mg PO DAILY 01/17/18 [History] Lisinopril 40 mg PO DAILY 01/17/18 [History] amLODIPine Besylate [Amlodipine Besylate] 10 mg PO DAILY 01/17/18 [History] Diclofenac Sodium [Voltaren] 75 mg PO BID PRN 11/28/18 [History] [place] [[place]] 565 mg PO DAILY 11/28/18 [History] Past Medical History Cardiovascular History: Reports: Hypertension Respiratory History: Reports: Sleep Apnea Other Respiratory History: "mild sleep apnea" does not use CPAP, snores when on his back Gastrointestinal History: Reports: None Genitourinary History: Reports: None Musculoskeletal History: Reports: Back Pain, Chronic Neurological History: Reports: None Endocrine/Metabolic History: Reports: Obesity/BMI 30+ Immunologic History: Reports: Other (See Below) Other Immunologic History: 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, completely recovered - Infectious Disease History Infectious Disease History: Reports: Chicken Pox - Past Surgical History Head Surgeries/Procedures: Reports: None Cardiovascular Surgical History: Reports: None Respiratory Surgical History: Reports: None GI Surgical History: Reports: Bariatric Procedure Other GI Surgeries/Procedures: lap band placement 2008, removal of lap band 2017 Male Surgical History: Reports: None Endocrine Surgical History: Reports: None Musculoskeletal Surgical History: Reports: Arthroscopic Knee, Shoulder Surgery Other Musculoskeletal Surgeries/Procedures:: left labrum repair, left knee arthroscopy, L sholuder Social & Family History - Family History Family Medical History: Unobtainable - Tobacco Use Smoking Status *Q: Never Smoker Second Hand Smoke Exposure: No - Caffeine Use Caffeine Use: Reports: Energy Drinks - Recreational Drug Use Recreational Drug Use: No H&P Review of Systems - Review of Systems: Review Of Systems: ROS reveals no pertinent complaints other than HPI. Exam - Exam Exam: See Below - Vital Signs Vital Signs: Last Vital Signs Temp 36.6 C 11/28/18 06:04 Pulse 94 11/28/18 06:04 Resp 18 11/28/18 06:04 BP 136/89 11/28/18 06:04 Pulse Ox 95 11/28/18 06:04 Weight: 142.292 kg - Exam General: Alert, Oriented, Cooperative HEENT: Conjunctiva Clear, Mucosa Moist & [place], Posterior Pharynx Clear Neck: Supple, Trachea Midline Lungs: Clear to Auscultation, Normal Respiratory Effort Cardiovascular: Regular Rate, Regular Rhythm GI/Abdominal Exam: Soft, No Distention, Rebound (LLQ), Tender (LLQ) Back Exam: Normal Inspection, Full Range of Motion Extremities: Normal Inspection - Patient Data Lab Results Last 24 hrs: Laboratory Results - last 24 hr 11/28/18 11/28/18 11/28/18 Range/Units 03:25 03:25 03:25 WBC 15.80 H (4.0-11.0) K/uL RBC 5.53 (4.50-5.90) M/uL Hgb 15.8 (13.0-17.0) g/dL Hct 45.6 (38.0-50.0) % MCV 82.5 (80.0-98.0) fL MCH 28.6 (27.0-32.0) pg MCHC 34.6 (31.0-37.0) g/dL RDW Std Deviation 42.2 (28.0-62.0) fl RDW Coeff of Miguelangel 14 (11.0-15.0) % Plt Count 216 (150-400) K/uL MPV 10.50 (7.40-12.00) fL Neut % (Auto) 69.0 (48.0-80.0) % Lymph % (Auto) 21.7 (16.0-40.0) % [place] % (Auto) 7.8 (0.0-15.0) % Eos % (Auto) 1.2 (0.0-7.0) % Baso % (Auto) 0.3 (0.0-1.5) % Neut # (Auto) 10.9 H (1.4-5.7) K/uL Lymph # (Auto) 3.4 H (0.6-2.4) K/uL [place] # (Auto) 1.2 H (0.0-0.8) K/uL Eos # (Auto) 0.2 (0.0-0.7) K/uL Baso # (Auto) 0.0 (0.0-0.1) K/uL Nucleated RBC % 0.0 /100WBC Nucleated RBCs # 0 K/uL Lactate 1.3 (0.20-2.00) mmol/L Sodium 139 (136-148) mmol/L Potassium 4.3 (3.5-5.1) mmol/L Chloride 101 (98-107) mmol/L Carbon Dioxide 24.4 (21.0-32.0) mmol/L BUN 13 (7.0-18.0) mg/dL Creatinine 1.0 (0.8-1.3) mg/dL Est Cr Clr Drug Dosing 117.63 mL/min Estimated GFR (MDRD) > 60.0 ml/min Glucose 120 H (74-106) mg/dL Calcium 10.2 H (8.5-10.1) mg/dL Total Bilirubin 0.9 (0.2-1.0) mg/dL AST 40 H (15-37) IU/L ALT 67 H (14-63) IU/L Alkaline Phosphatase 68 (46-116) U/L Total Protein 8.0 (6.4-8.2) g/dL Albumin 4.2 (3.4-5.0) g/dL Globulin 3.8 (2.6-4.0) g/dL Albumin/Globulin Ratio 1.1 (0.9-1.6) Urine Color Urine Appearance Urine pH (5.0-8.0) Ur Specific [place] (1.001-1.035) Urine Protein (NEGATIVE) mg/dL Urine Glucose (UA) (NEGATIVE) mg/dL Urine Ketones (NEGATIVE) mg/dL Urine Occult Blood (NEGATIVE) Urine Nitrite (NEGATIVE) Urine Bilirubin (NEGATIVE) Urine Urobilinogen (<2.0) EU/dL Ur Leukocyte Esterase (NEGATIVE) Urine RBC (0-2/HPF) Urine WBC (0-5/HPF) Ur Epithelial Cells (NONE-FEW) Urine Bacteria (NEGATIVE) 11/28/18 Range/Units 03:25 WBC (4.0-11.0) K/uL RBC (4.50-5.90) M/uL Hgb (13.0-17.0) g/dL Hct (38.0-50.0) % MCV (80.0-98.0) fL MCH (27.0-32.0) pg MCHC (31.0-37.0) g/dL RDW Std Deviation (28.0-62.0) fl RDW Coeff of Miguelangel (11.0-15.0) % Plt Count (150-400) K/uL MPV (7.40-12.00) fL Neut % (Auto) (48.0-80.0) % Lymph % (Auto) (16.0-40.0) % [place] % (Auto) (0.0-15.0) % Eos % (Auto) (0.0-7.0) % Baso % (Auto) (0.0-1.5) % Neut # (Auto) (1.4-5.7) K/uL Lymph # (Auto) (0.6-2.4) K/uL [place] # (Auto) (0.0-0.8) K/uL Eos # (Auto) (0.0-0.7) K/uL Baso # (Auto) (0.0-0.1) K/uL Nucleated RBC % /100WBC Nucleated RBCs # K/uL Lactate (0.20-2.00) mmol/L Sodium (136-148) mmol/L Potassium (3.5-5.1) mmol/L Chloride (98-107) mmol/L Carbon Dioxide (21.0-32.0) mmol/L BUN (7.0-18.0) mg/dL Creatinine (0.8-1.3) mg/dL Est Cr Clr Drug Dosing mL/min Estimated GFR (MDRD) ml/min Glucose (74-106) mg/dL Calcium (8.5-10.1) mg/dL Total Bilirubin (0.2-1.0) mg/dL AST (15-37) IU/L ALT (14-63) IU/L Alkaline Phosphatase (46-116) U/L Total Protein (6.4-8.2) g/dL Albumin (3.4-5.0) g/dL Globulin (2.6-4.0) g/dL Albumin/Globulin Ratio (0.9-1.6) Urine Color YELLOW Urine Appearance CLEAR Urine pH 6.0 (5.0-8.0) Ur Specific [place] 1.010 (1.001-1.035) Urine Protein TRACE H (NEGATIVE) mg/dL Urine Glucose (UA) NEGATIVE (NEGATIVE) mg/dL Urine Ketones NEGATIVE (NEGATIVE) mg/dL Urine Occult Blood NEGATIVE (NEGATIVE) Urine Nitrite NEGATIVE (NEGATIVE) Urine Bilirubin NEGATIVE (NEGATIVE) Urine Urobilinogen 0.2 (<2.0) EU/dL Ur Leukocyte Esterase NEGATIVE (NEGATIVE) Urine RBC NONE SEEN (0-2/HPF) Urine WBC NONE SEEN (0-5/HPF) Ur Epithelial Cells RARE (NONE-FEW) Urine Bacteria NOT SEEN (NEGATIVE) Result Diagrams: 11/28/18 03:25 11/28/18 03:25 Consult PN Assessment/Plan Procedures: Procedures CONTRAST X-RAY OF SHOULDER (10/27/14) EMERGENCY DEPT VISIT (11/03/13) KNEE ARTHROSCOPY/SURGERY (01/22/18) MRI JNT OF LWR EXTRE W/O DYE (10/31/17) MRI JOINT UPR EXTR W/O&W/DYE (10/27/14) NEEDLE LOCALIZATION BY XRAY (10/27/14) RPR S/N/AX/GEN/TRNK2.6-7.5CM (11/03/13) SEMEN ANAL STRICT CRITERIA (07/31/16) X-RAY EXAM KNEE 4 OR MORE (10/29/17) Problem List Initiated/Reviewed/Updated: Yes Plan: Patient is a 33 year old male who presents with acute diverticulitis. His physical exam shows just localized tenderness to the LLQ. He is responding to fluids. Will proceed with NPO (other than ice chips and sips with meds), IV cipro and flagyl, and continued fluid resuscitation. Will continue to follow.
[2018-11-28] MEDS: Hydrochlorothiazide 12.5 MG Cap PO SCH (08:33)
[2018-11-28] MEDS: Lisinopril 10 MG Tab PO SCH (08:33)
[2018-11-28] MEDS: amLODIPine 5 MG Tab PO SCH (08:34)
[2018-11-28] MEDS: metroNIDAZOLE/Normal Saline 500 MG in Premix Bag 1 BAG IV SCH ×2 (11:22→17:43)
[2018-11-28] MEDS ORDERED: Ondansetron 4 MG/2 ML SDV IVPUSH PRN (14:58)
[2018-11-28] MEDS ORDERED: Acetaminophen 325 MG Tab PO PRN (15:13)
[2018-11-29] MEDS: Sodium Chloride 0.9% 1,000 ML IV SCH (00:20)
[2018-11-29] MEDS: metroNIDAZOLE/Normal Saline 500 MG in Premix Bag 1 BAG IV SCH ×2 (00:25→06:35)
[2018-11-29] MEDS ORDERED: Levofloxacin/Dextrose 5%-Water 500 MG in Premix Bag 1 BAG IV SCH (05:00)
[2018-11-29 06:38] LABS: BLOOD UREA NITROGEN,BUN 14 mg/dL (7.0-18.0); CARBON DIOXIDE,CO2 24.4 mmol/L (21.0-32.0); CHLORIDE,CL 104 mmol/L (98-107); GLUCOSE RANDOM 96 mg/dL (74-106); POTASSIUM,K 3.7 mmol/L (3.5-5.1); SODIUM,NA 139 mmol/L (136-148)
[2018-11-29] MEDS: Enoxaparin 40 MG/0.4 ML Syringe SUBCUT SCH (06:38)
--- NOTE | 2018-11-29 07:30 | PCM.CONSN ---
- General Info Date of Service: 11/29/18 Subjective Update: Pain is gone. Patient feels better. Vitals stable overnight. Functional Status: Reports: Pain Controlled, Tolerating Diet, Ambulating, Urinating - Review of Systems General: Reports: No Symptoms Gastrointestinal: Reports: No Symptoms - Patient Data Vitals - Most Recent: Last Vital Signs Temp 37.4 C 11/29/18 04:00 Pulse 78 11/29/18 04:00 Resp 14 11/29/18 04:00 BP 124/71 11/29/18 04:00 Pulse Ox 95 11/29/18 04:00 Weight - Most Recent: 142.292 kg I&O - Last 24 Hours: Intake & Output 11/28/18 11/29/18 11/29/18 22:59 06:59 14:59 Intake Total 1401 1328 Output Total 875 625 Balance 526 703 Lab Results Last 24 Hours: Laboratory Results - last 24 hr 11/29/18 11/29/18 Range/Units 05:15 05:15 WBC 9.39 (4.0-11.0) K/uL RBC 4.74 (4.50-5.90) M/uL Hgb 13.3 (13.0-17.0) g/dL Hct 39.7 (38.0-50.0) % MCV 83.8 (80.0-98.0) fL MCH 28.1 (27.0-32.0) pg MCHC 33.5 (31.0-37.0) g/dL RDW Std Deviation 44.0 (28.0-62.0) fl RDW Coeff of Miguelangel 14 (11.0-15.0) % Plt Count 184 (150-400) K/uL MPV 10.60 (7.40-12.00) fL Neut % (Auto) 58.9 (48.0-80.0) % Lymph % (Auto) 29.1 (16.0-40.0) % Barber % (Auto) 9.5 (0.0-15.0) % Eos % (Auto) 2.1 (0.0-7.0) % Baso % (Auto) 0.4 (0.0-1.5) % Neut # (Auto) 5.5 (1.4-5.7) K/uL Lymph # (Auto) 2.7 H (0.6-2.4) K/uL [place] # (Auto) 0.9 H (0.0-0.8) K/uL Eos # (Auto) 0.2 (0.0-0.7) K/uL Baso # (Auto) 0.0 (0.0-0.1) K/uL Nucleated RBC % 0.0 /100WBC Nucleated RBCs # 0 K/uL Sodium 139 (136-148) mmol/L Potassium 3.7 (3.5-5.1) mmol/L Chloride 104 (98-107) mmol/L Carbon Dioxide 24.4 (21.0-32.0) mmol/L BUN 14 (7.0-18.0) mg/dL Creatinine 0.9 (0.8-1.3) mg/dL Est Cr Clr Drug Dosing 130.70 mL/min Estimated GFR (MDRD) > 60.0 ml/min Glucose 96 (74-106) mg/dL Calcium 9.1 (8.5-10.1) mg/dL Total Bilirubin 0.8 (0.2-1.0) mg/dL AST 23 (15-37) IU/L ALT 48 (14-63) IU/L Alkaline Phosphatase 49 (46-116) U/L Total Protein 6.7 (6.4-8.2) g/dL Albumin 3.2 L (3.4-5.0) g/dL Globulin 3.5 (2.6-4.0) g/dL Albumin/Globulin Ratio 0.9 (0.9-1.6) Med Orders - Current: Current Medications Acetaminophen (Tylenol) 650 mg PO Q4H PRN PRN Reason: Pain/Fever Last Admin: 11/28/18 15:33 Dose: 650 mg Amlodipine Besylate (Norvasc) 10 mg PO DAILY [facility] Last Admin: 11/28/18 08:34 Dose: 10 mg Enoxaparin Sodium (Lovenox) 40 mg SUBCUT Q24H [facility] Last Admin: 11/29/18 06:38 Dose: 40 mg Hydrochlorothiazide (Hydrochlorothiazide) 12.5 mg PO DAILY [facility] Last Admin: 11/28/18 08:33 Dose: 12.5 mg Sodium Chloride (Normal Saline) 1,000 mls @ 125 mls/hr IV ASDIRECTED [facility] Last Admin: 11/29/18 00:20 Dose: 125 mls/hr Metronidazole 500 mg/ Premix 100 mls @ 100 mls/hr IV QID [facility] Last Admin: 11/29/18 06:35 Dose: 100 mls/hr Levofloxacin/Dextrose 500 mg/ (Premix) 100 mls @ 100 mls/hr IV Q24H [facility] Last Admin: 11/29/18 04:45 Dose: 100 mls/hr Lisinopril (Prinivil) 40 mg PO DAILY [facility] Last Admin: 11/28/18 08:33 Dose: 40 mg Ondansetron HCl (Zofran) 4 mg IVPUSH Q4H PRN PRN Reason: Nausea/Vomiting Last Admin: 11/28/18 15:14 Dose: 4 mg Sodium Chloride (Saline Flush) 10 ml FLUSH ASDIRECTED PRN PRN Reason: Keep Vein Open Sodium Chloride (Saline Flush) 2.5 ml FLUSH ASDIRECTED PRN PRN Reason: Keep Vein Open Discontinued Medications Sodium Chloride (Normal Saline) 1,000 mls @ 999 mls/hr IV STAT ONE Stop: 11/28/18 04:29 Last Admin: 11/28/18 03:40 Dose: 999 mls/hr Levofloxacin/Dextrose 500 mg/ (Premix) 100 mls @ 100 mls/hr IV ONETIME ONE Stop: 11/28/18 06:08 Last Admin: 11/28/18 05:15 Dose: 100 mls/hr Metronidazole 500 mg/ Premix 100 mls @ 100 mls/hr IV ONETIME ONE Stop: 11/28/18 06:08 Last Admin: 11/28/18 05:15 Dose: 100 mls/hr Sodium Chloride (Normal Saline) 1,000 mls @ 150 mls/hr IV ASDIRECTED [facility] Last Infusion: 11/28/18 15:37 Dose: 125 mls/hr Levofloxacin/Dextrose 500 mg/ (Premix) 100 mls @ 100 mls/hr IV Q24H [facility] Last Admin: 11/28/18 08:04 Dose: Not Given Iopamidol (Isovue Multipack-370 (76%)) 100 ml IVPUSH ONETIME STA Stop: 11/28/18 04:24 Last Admin: 11/28/18 04:24 Dose: 100 ml Ketorolac Tromethamine (Toradol) 30 mg IVPUSH ONETIME ONE Stop: 11/28/18 03:30 Last Admin: 11/28/18 03:40 Dose: 30 mg Morphine Sulfate (Morphine) 4 mg IVPUSH ONETIME ONE Stop: 11/28/18 03:34 Last Admin: 11/28/18 03:42 Dose: 4 mg Morphine Sulfate (Morphine) 2 mg IVPUSH Q2H PRN PRN Reason: Pain (severe 7-10) Stop: 11/29/18 06:45 Last Admin: 11/28/18 08:35 Dose: 2 mg Ondansetron HCl (Zofran) 4 mg IVPUSH ONETIME ONE Stop: 11/28/18 03:35 Last Admin: 11/28/18 03:40 Dose: 4 mg - Exam General: Alert, Oriented, Cooperative Lungs: Normal Respiratory Effort Cardiovascular: Regular Rate GI/Abdominal Exam: Soft, Non-Tender, No Distention, No Mass Consult PN Assessment/Plan Procedures: Procedures CONTRAST X-RAY OF SHOULDER (10/27/14) EMERGENCY DEPT VISIT (11/03/13) KNEE ARTHROSCOPY/SURGERY (01/22/18) MRI JNT OF LWR EXTRE W/O DYE (10/31/17) MRI JOINT UPR EXTR W/O&W/DYE (10/27/14) NEEDLE LOCALIZATION BY XRAY (10/27/14) RPR S/N/AX/GEN/TRNK2.6-7.5CM (11/03/13) SEMEN ANAL STRICT CRITERIA (07/31/16) X-RAY EXAM KNEE 4 OR MORE (10/29/17) (1) Diverticulitis SNOMED Code(s): 329309823 Code(s): K57.92 - DVTRCLI OF INTEST, PART UNSP, W/O PERF OR ABSCESS W/O BLEED Priority: High Current Visit: Yes Problem List Initiated/Reviewed/Updated: Yes Plan: Patient appears well today. Ok to advance diet as tolerated. Switch to oral meds. Will follow up in 2 weeks in my clinic.
[2018-11-29 07:35] VITALS: BP 133/79; PULSE 73
[2018-11-29] MEDS: Hydrochlorothiazide 12.5 MG Cap PO SCH (08:46)
[2018-11-29] MEDS: amLODIPine 5 MG Tab PO SCH (08:46)
[2018-11-29] MEDS: Lisinopril 10 MG Tab PO SCH (08:46)
--- NOTE | 2018-11-29 09:48 | PCM.DCSUM1 ---
Discharge Summary - Hospital Course Diagnosis: Stroke: No - Discharge Data Discharge Date: 11/29/18 Discharge Disposition: Home, Self-Care 01 Condition: Good - Referral to Home Health Primary Care Physician: Dragan Waite MD - Discharge Diagnosis/Problem(s) (1) Diverticulitis SNOMED Code(s): 754191858 ICD Code: K57.92 - DVTRCLI OF INTEST, PART UNSP, W/O PERF OR ABSCESS W/O BLEED Status: Resolved Priority: High (2) Hypertension SNOMED Code(s): 66973732 ICD Code: I10 - ESSENTIAL (PRIMARY) HYPERTENSION Status: Chronic Priority : High Qualifiers: Hypertension type: essential hypertension Qualified Code(s): I10 - Essential (primary) hypertension (3) Obesity, Class III, BMI 40-49.9 (morbid obesity) SNOMED Code(s): 507047504, 021658810, 08229648588054 ICD Code: E66.01 - MORBID (SEVERE) OBESITY DUE TO EXCESS CALORIES Status: Chronic Priority: Medium - Patient Summary/Data Consults: Consultations 11/28/18 05:17 Consult to Physician [CONS] Stat Hospital Course: The patient is an otherwise healthy 33-year-old gentleman who had presented to the emergency department with a complaint of fever and lower abdominal pain. The patient reports that he had a significant fever at home and had been tested at 106F. Further, the patient reports that he had lower abdominal pain which started approximately 2 days ago and had begin progressively worse. He is described as sharp and stabbing and is predominantly in the lower right quadrant radiate into the lower left quadrant and mid abdomen.A CT scan obtained of the patient's lower abdomen on November 28, 2018 was remarkable for severe wall thickening and surrounding inflammatory changes secondary to diverticulosis and a proximal sigmoid colon. At the time of admission the patient had been consulted with general surgeon and it was preferable that the patient be managed medically for his diverticulitis as opposed to surgically. The patient was kept nothing by mouth he also had had pain control with the use of IV morphine. He was kept on ciprofloxacin 500 mg IV twice a day as well as Flagyl 500 mg IV 4 times a day. The patient tolerated these antibiotics well. The patient had been evaluated by surgeon on day of discharge and was felt that he could easily tolerated advancement in his diet and be appropriate for discharge. Further, the patient said that he felt like he could go home safely. The patient has been recommended to continue with his diet as tolerated. He is also to have activity as tolerated. The patient has been scheduled to follow up with surgeon next week. The patient has been hemodynamically stable and he has been discharged from acute hospitalization with ciprofloxacin 500 mg by mouth twice a day and Flagyl 500 mg by mouth 4 times a day. He was given prescriptions for 5 days worth. The patient is discharged from acute hospitalization with recommendations listed above. - Patient Instructions Diet: Heart Healthy Diet Activity: As Tolerated Notify Provider of: Fever, Increased Pain - Discharge Plan *PRESCRIPTION DRUG MONITORING PROGRAM REVIEWED*: No *COPY OF PRESCRIPTION DRUG MONITORING REPORT IN PATIENT DAVE: No Prescriptions/Med Rec: Ciprofloxacin HCl [Cipro] 500 mg PO BID #10 tablet metroNIDAZOLE [Flagyl] 500 mg PO Q8H #15 tab Home Medications: Home Meds Hydrochlorothiazide [Microzide] 12.5 mg PO DAILY 01/17/18 [History] Lisinopril 40 mg PO DAILY 01/17/18 [History] amLODIPine Besylate [Amlodipine Besylate] 10 mg PO DAILY 01/17/18 [History] Diclofenac Sodium [Voltaren] 75 mg PO BID PRN 11/28/18 [History] [place] [[place] Berries] 565 mg PO DAILY 11/28/18 [History] Ciprofloxacin HCl [Cipro] 500 mg PO BID #10 tablet 11/29/18 [Rx] metroNIDAZOLE [Flagyl] 500 mg PO Q8H #15 tab 11/29/18 [Rx] Oxygen Therapy Mode: Room Air Patient Handouts: Diverticulitis, [id number], Hypertension, [id number], Ciprofloxacin tablets, Metronidazole tablets or capsules Referrals: Dragan Waite MD [Primary Care Provider] - 12/16/18 10:15 am (Please arrive to the clinic 15 minutes prior to your scheduled appointment) - Discharge Summary/Plan Comment DC Time >30 min.: Yes - Patient Data Vitals - Most Recent: Last Vital Signs Temp 36.6 C 11/29/18 07:34 Pulse 73 11/29/18 07:34 Resp 18 11/29/18 07:34 BP 133/79 11/29/18 08:46 Pulse Ox 95 11/29/18 07:34 Weight - Most Recent: 142.292 kg I&O - Last 24 hours: Intake & Output 11/28/18 11/29/18 11/29/18 22:59 06:59 14:59 Intake Total 1401 1328 100 Output Total 875 625 Balance 526 703 100 Lab Results - Last 24 hrs: Laboratory Results - last 24 hr 11/29/18 11/29/18 Range/Units 05:15 05:15 WBC 9.39 (4.0-11.0) K/uL RBC 4.74 (4.50-5.90) M/uL Hgb 13.3 (13.0-17.0) g/dL Hct 39.7 (38.0-50.0) % MCV 83.8 (80.0-98.0) fL MCH 28.1 (27.0-32.0) pg MCHC 33.5 (31.0-37.0) g/dL RDW Std Deviation 44.0 (28.0-62.0) fl RDW Coeff of Miguelangel 14 (11.0-15.0) % Plt Count 184 (150-400) K/uL MPV 10.60 (7.40-12.00) fL Neut % (Auto) 58.9 (48.0-80.0) % Lymph % (Auto) 29.1 (16.0-40.0) % [place] % (Auto) 9.5 (0.0-15.0) % Eos % (Auto) 2.1 (0.0-7.0) % Baso % (Auto) 0.4 (0.0-1.5) % Neut # (Auto) 5.5 (1.4-5.7) K/uL Lymph # (Auto) 2.7 H (0.6-2.4) K/uL [place] # (Auto) 0.9 H (0.0-0.8) K/uL Eos # (Auto) 0.2 (0.0-0.7) K/uL Baso # (Auto) 0.0 (0.0-0.1) K/uL Nucleated RBC % 0.0 /100WBC Nucleated RBCs # 0 K/uL Sodium 139 (136-148) mmol/L Potassium 3.7 (3.5-5.1) mmol/L Chloride 104 (98-107) mmol/L Carbon Dioxide 24.4 (21.0-32.0) mmol/L BUN 14 (7.0-18.0) mg/dL Creatinine 0.9 (0.8-1.3) mg/dL Est Cr Clr Drug Dosing 130.70 mL/min Estimated GFR (MDRD) > 60.0 ml/min Glucose 96 (74-106) mg/dL Calcium 9.1 (8.5-10.1) mg/dL Total Bilirubin 0.8 (0.2-1.0) mg/dL AST 23 (15-37) IU/L ALT 48 (14-63) IU/L Alkaline Phosphatase 49 (46-116) U/L Total Protein 6.7 (6.4-8.2) g/dL Albumin 3.2 L (3.4-5.0) g/dL Globulin 3.5 (2.6-4.0) g/dL Albumin/Globulin Ratio 0.9 (0.9-1.6) Med Orders - Current: Current Medications Acetaminophen (Tylenol) 650 mg PO Q4H PRN PRN Reason: Pain/Fever Last Admin: 11/28/18 15:33 Dose: 650 mg Amlodipine Besylate (Norvasc) 10 mg PO DAILY [facility] Last Admin: 11/29/18 08:46 Dose: 10 mg Enoxaparin Sodium (Lovenox) 40 mg SUBCUT Q24H [facility] Last Admin: 11/29/18 06:38 Dose: 40 mg Hydrochlorothiazide (Hydrochlorothiazide) 12.5 mg PO DAILY [facility] Last Admin: 11/29/18 08:46 Dose: 12.5 mg Sodium Chloride (Normal Saline) 1,000 mls @ 125 mls/hr IV ASDIRECTED [facility] Last Admin: 11/29/18 00:20 Dose: 125 mls/hr Metronidazole 500 mg/ Premix 100 mls @ 100 mls/hr IV QID [facility] Last Admin: 11/29/18 06:35 Dose: 100 mls/hr Levofloxacin/Dextrose 500 mg/ (Premix) 100 mls @ 100 mls/hr IV Q24H [facility] Last Admin: 11/29/18 04:45 Dose: 100 mls/hr Lisinopril (Prinivil) 40 mg PO DAILY [facility] Last Admin: 11/29/18 08:46 Dose: 40 mg Ondansetron HCl (Zofran) 4 mg IVPUSH Q4H PRN PRN Reason: Nausea/Vomiting Last Admin: 11/28/18 15:14 Dose: 4 mg Sodium Chloride (Saline Flush) 10 ml FLUSH ASDIRECTED PRN PRN Reason: Keep Vein Open Sodium Chloride (Saline Flush) 2.5 ml FLUSH ASDIRECTED PRN PRN Reason: Keep Vein Open Discontinued Medications Sodium Chloride (Normal Saline) 1,000 mls @ 999 mls/hr IV STAT ONE Stop: 11/28/18 04:29 Last Admin: 11/28/18 03:40 Dose: 999 mls/hr Levofloxacin/Dextrose 500 mg/ (Premix) 100 mls @ 100 mls/hr IV ONETIME ONE Stop: 11/28/18 06:08 Last Admin: 11/28/18 05:15 Dose: 100 mls/hr Metronidazole 500 mg/ Premix 100 mls @ 100 mls/hr IV ONETIME ONE Stop: 11/28/18 06:08 Last Admin: 11/28/18 05:15 Dose: 100 mls/hr Sodium Chloride (Normal Saline) 1,000 mls @ 150 mls/hr IV ASDIRECTED [facility] Last Infusion: 11/28/18 15:37 Dose: 125 mls/hr Levofloxacin/Dextrose 500 mg/ (Premix) 100 mls @ 100 mls/hr IV Q24H [facility] Last Admin: 11/28/18 08:04 Dose: Not Given Iopamidol (Isovue Multipack-370 (76%)) 100 ml IVPUSH ONETIME STA Stop: 11/28/18 04:24 Last Admin: 11/28/18 04:24 Dose: 100 ml Ketorolac Tromethamine (Toradol) 30 mg IVPUSH ONETIME ONE Stop: 11/28/18 03:30 Last Admin: 11/28/18 03:40 Dose: 30 mg Morphine Sulfate (Morphine) 4 mg IVPUSH ONETIME ONE Stop: 11/28/18 03:34 Last Admin: 11/28/18 03:42 Dose: 4 mg Morphine Sulfate (Morphine) 2 mg IVPUSH Q2H PRN PRN Reason: Pain (severe 7-10) Stop: 11/29/18 06:45 Last Admin: 11/28/18 08:35 Dose: 2 mg Ondansetron HCl (Zofran) 4 mg IVPUSH ONETIME ONE Stop: 11/28/18 03:35 Last Admin: 11/28/18 03:40 Dose: 4 mg
== END 2018-11-29 11:25 | disposition home or self-care (01) ==
LOC: MW.ED 03:08 → MW.MS 05:17
PROVIDERS: ADMIT Internal Medicine; ATTEND Internal Medicine
DX: K57.32 Diverticulitis of large intestine without perforation or abscess without bleeding (principal); I10 Essential (primary) hypertension; E66.01 Morbid (severe) obesity due to excess calories; Z68.41 Body mass index [BMI] 40.0-44.9, adult; Z79.899 Other long term (current) drug therapy; Z88.8 Allergy status to other drugs, medicaments and biological substances
CPT/HCPCS: 36415; 74177; 80053; 81001; 83605; 85025; 96361; 96365; 96375; 99285; A9270; J1650; J1885; J1956; J2270; J2405; J3490; J7040; Q9967; 96366; 96367; 96372; 96376; G0378

== ENCOUNTER 2019-01-13 08:41 | Day surgery (SDC) | payer BC ==
[~2019-01-13 08:41] MED LIST: Lactated Ringers 1,000 ML IV SCH; Sodium Chloride 0.9% 10 ML SDV IV PRN; Sodium Chloride 0.9% 10 ML Syringe FLUSH PRN; Sodium Chloride 0.9% 2.5 ML Syringe FLUSH PRN
[2019-01-13] MEDS ORDERED: Ondansetron 4 MG/2 ML SDV IVPUSH ONE (09:08)
--- NOTE | 2019-01-13 09:14 | PCM.PREANE ---
Preanesthetic Assessment - Anesthesia/Transfusion/Family Hx Anesthesia History: Prior Anesthesia Reaction Other Type of Anesthesia Reaction Comment: problems with post op nausea Family History of Anesthesia Reaction: No Transfusion History: No Prior Transfusion(s) Intubation History: Unknown - Review of Systems General: No Symptoms Pulmonary: No Symptoms Cardiovascular: No Symptoms Gastrointestinal: Diarrhea, Other (recently hospitalized for diverticulosis) Neurological: No Symptoms Other: Reports: None - Physical Assessment Height: 6 ft 1 in Weight: 145.15 kg ASA Class: 2 Mental Status: Alert & Oriented x3 Airway Class: Mallampati = 2 Dentition: Reports: Normal Dentition Thyro-Mental Finger Breadths: 3 Mouth Opening Finger Breadths: 3 ROM/Head Extension: Full Lungs: Clear to Auscultation, Normal Respiratory Effort Cardiovascular: Regular Rate, Regular Rhythm - Allergies Allergies/Adverse Reactions: Allergies Allergy/AdvReac Type Severity Reaction Status Date / Time prednisone Allergy Hives Verified 01/08/19 10:54 - Blood Blood Available: No - Anesthesia Plan Pre-Op Medication Ordered: None - Acknowledgements Anesthesia Type Planned: MAC Pt an Appropriate Candidate for the Planned Anesthesia: Yes Alternatives and Risks of Anesthesia Discussed w Pt/Guardian: Yes Pt/Guardian Understands and Agrees with Anesthesia Plan: Yes PreAnesthesia Questionnaire HEENT History: Reports: None Cardiovascular History: Reports: Hypertension Respiratory History: Reports: Sleep Apnea Other Respiratory History: "mild sleep apnea" does not use CPAP, snores when on his back Gastrointestinal History: Reports: Other (See Below) Other Gastrointestinal History: hx diverticulitis, completed 2 weeks of antibiotic therapy Genitourinary History: Reports: None Musculoskeletal History: Reports: Arthritis, Back Pain, Chronic Neurological History: Reports: None Psychiatric History: Reports: None Endocrine/Metabolic History: Reports: Obesity/BMI 30+ (BMI 42.2) Hematologic History: Reports: None Immunologic History: Reports: Other (See Below) Other Immunologic History: 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 band placement and removal), Hernia, Inguinal (as a toddler) Other GI Surgeries/Procedures: lap band placement 2007, removal of lap band 2016 , inguinal hernia repair as a toddler Male Surgical History: Reports: None Endocrine Surgical History: Reports: None Neurological Surgical History: Reports: None Musculoskeletal Surgical History: Reports: Arthroscopic Knee, Shoulder Surgery Other Musculoskeletal Surgeries/Procedures:: left labrum repair, left & right knee arthroscopy, Oncologic Surgical History: Reports: None - SUBSTANCE USE Smoking Status *Q: Never Smoker - HOME MEDS Home Medications: Home Meds Hydrochlorothiazide [Microzide] 12.5 mg PO DAILY 01/17/18 [History] Lisinopril 40 mg PO DAILY 01/17/18 [History] amLODIPine Besylate [Amlodipine Besylate] 10 mg PO DAILY 01/17/18 [History] Diclofenac Sodium [Voltaren] 75 mg PO DAILY 11/28/18 [History] [place] [[place] Ber[place]] 565 mg PO DAILY 11/28/18 [History] - CURRENT (IN HOUSE) MEDS Current Meds: Current Medications Fentanyl (Sublimaze) 50 - 100 mcg IVPUSH Q5M PRN PRN Reason: Pain (severe 7-10) Lactated Ringer's (Ringers, Lactated) 1,000 mls @ 125 mls/hr IV ASDIRECTED [facility] Ondansetron HCl (Zofran) 8 mg IVPUSH ONETIME ONE Stop: 01/13/19 09:09 Sodium Chloride (Saline Flush) 10 ml FLUSH ASDIRECTED PRN PRN Reason: Keep Vein Open Sodium Chloride (Saline Flush) 2.5 ml FLUSH ASDIRECTED PRN PRN Reason: Keep Vein Open Sodium Chloride (Saline Flush) 10 ml FLUSH ASDIRECTED PRN PRN Reason: Keep Vein Open Sodium Chloride (Saline Flush) 2.5 ml FLUSH ASDIRECTED PRN PRN Reason: Keep Vein Open Sodium Chloride (Normal Saline) 10 ml IV ASDIRECTED PRN PRN Reason: IV Use
[2019-01-13] MEDS: fentaNYL 100 MCG/2 ML SDV IVPUSH PRN ×2 (09:28→09:31)
[2019-01-13] MEDS ORDERED: Midazolam 1 MG/ML 2 ML SDV ONE (10:07)
[2019-01-13] MEDS ORDERED: Propofol 200 MG/20 ML SDV ONE ×2 (10:07→10:09)
--- NOTE | 2019-01-13 11:17 | PCM.POSTAN ---
POST ANESTHESIA ASSESSMENT - MENTAL STATUS Mental Status: Alert, Oriented - VITAL SIGNS Vital Signs: Last Vital Signs Temp 36.1 C 01/13/19 09:00 Pulse 80 01/13/19 11:03 Resp 10 L 01/13/19 11:03 BP 130/78 01/13/19 11:03 Pulse Ox 95 01/13/19 11:03 - RESPIRATORY Respiratory Status: Respiratory Rate WNL, Airway Patent, O2 Saturation Stable - CARDIOVASCULAR CV Status: Pulse Rate WNL, Blood Pressure Stable - GASTROINTESTINAL GI Status: No Symptoms - PAIN Pain Score: 0 - POST OP HYDRATION Hydration Status: Adequate & Stable - OBSERVATIONS Free Text/Narrative:: no anesthesia problems
--- NOTE | 2019-01-13 11:18 | PCM48HPAN ---
Post Anesthesia Note - EVALUATION WITHIN 48HRS OF ANESTHETIC Vital Signs in Normal Range: Yes Patient Participated in Evaluation: Yes Respiratory Function Stable: Yes Airway Patent: Yes Cardiovascular Function Stable: Yes Hydration Status Stable: Yes Pain Control Satisfactory: Yes Nausea and Vomiting Control Satisfactory: Yes Mental Status Recovered: Yes Vital Signs: Last Vital Signs Temp 36.1 C 01/13/19 09:00 Pulse 80 01/13/19 11:03 Resp 10 L 01/13/19 11:03 BP 130/78 01/13/19 11:03 Pulse Ox 95 01/13/19 11:03 - COMMENTS/OBSERVATIONS Free Text/Narrative:: no anesthesia problems
--- NOTE | 2019-01-13 11:32 | PCM.OPNOTE ---
- General Post-Op/Procedure Note Date of Surgery/Procedure: 01/13/19 Operative Procedure(s): Colonoscopy Findings: Diverticulosis Pre Op Diagnosis: Diverticulitis Post-Op Diagnosis: Diverticulosis Anesthesia Technique: MAC Primary Surgeon: Gabriella Arriaza Condition: Good Free Text/Narrative:: Intake & Output 01/12/19 01/13/19 01/13/19 22:59 06:59 14:59 Intake Total 900 Balance 900
[2019-01-13 12:20] VITALS: BP 137/78; PULSE 79
--- NOTE | 2019-01-13 13:46 | OR ---
SURGEON: GABRIELLA ARRIAZA MD DATE OF PROCEDURE: 01/13/2019 PREOPERATIVE DIAGNOSIS: Diverticulitis. POSTOPERATIVE DIAGNOSIS: Diverticulosis. PROCEDURE PERFORMED: Diagnostic colonoscopy. PRIMARY SURGEON: Gabriella Arriaza MD. ANESTHESIA: MAC. INSTRUMENT USED: Olympus colonoscope. EXTENT OF EXAM: To the cecum. PREPARATION: Good. LIMITATIONS: None. INDICATIONS FOR EXAMINATION: The patient is a 33-year-old male who was recently diagnosed with diverticulitis. I explained the need for a diagnostic colonoscopy now that the inflammation has settled down. I explained the procedure; expected perioperative course; and risks including bleeding, infection, or damage to surrounding structures including perforation. The patient verbalized understanding and wishes to proceed. PROCEDURE IN DETAIL: The patient was brought to the endoscopy suite and placed in the left lateral decubitus position. A time-out was completed verifying the patient's name, age, date of , allergies, and procedure to be performed. Monitored anesthesia care was induced and continuous oxygen was provided via nasal cannula throughout the procedure. After adequate sedation was achieved, a digital rectal exam was performed. This exam was within normal limits. A well-lubricated colonoscope was inserted in the rectum and advanced under direct visualization to the level of the cecum. The cecum was identified by both visual and anatomic landmarks. A photograph was taken of the cecal cap as well as with the scope retroflexed within the cecum. Scope was then fully withdrawn while examining the color, texture, anatomy, and integrity of the mucosa from the cecum to the anal canal. Starting in the distal transverse colon, the patient was noted to have scattered areas of small diverticula. No other pathology was found. The scope was then brought into the rectum and retroflexed to allow visualization of the anal canal opening. This appeared normal and a photograph was taken. The scope was then straightened out and fully withdrawn. The cecum to anus time was 6 minutes. The patient tolerated the procedure well and was transferred to the PACU in stable condition. ENDOSCOPIC DIAGNOSIS: Diverticulosis. RECOMMENDATIONS: The patient and I have already discussed diverticulosis in clinic. The patient can follow up at the age of 44 for his first screening colonoscopy or he can present to clinic sooner should any issues arise. SANTOSH JULIEN /[id number]
== END 2019-01-13 11:25 | disposition home or self-care (01) ==
LOC: MW.SDS 08:41
PROVIDERS: ATTEND Surgery
DX: K57.30 Diverticulosis of large intestine without perforation or abscess without bleeding (principal); I10 Essential (primary) hypertension; M19.90 Unspecified osteoarthritis, unspecified site; E66.9 Obesity, unspecified; Z68.41 Body mass index [BMI] 40.0-44.9, adult; Z79.899 Other long term (current) drug therapy; Z88.8 Allergy status to other drugs, medicaments and biological substances
CPT/HCPCS: 00811; J2250; J2405; J2704; J3010; J7120

== ENCOUNTER 2020-06-22 03:06 | Emergency (ER) | payer BC ==
[2020-06-22] MEDS ORDERED: Ondansetron 4 MG/2 ML SDV IVPUSH ONE (03:29)
[2020-06-22] MEDS ORDERED: Sodium Chloride 0.9% 2.5 ML Syringe FLUSH PRN (03:29)
[2020-06-22] MEDS ORDERED: fentaNYL 50 MCG/ML SDV IVPUSH ONE (03:29)
[2020-06-22] MEDS ORDERED: Sodium Chloride 0.9% 10 ML Syringe FLUSH PRN (03:29)
--- NOTE | 2020-06-22 03:29 | EDM.PDOC ---
ED HPI GENERAL MEDICAL PROBLEM - General Chief Complaint: Abdominal Pain Stated Complaint: LOWER ABDOMINAL PAIN Time Seen by Provider: 06/22/20 03:15 - History of Present Illness INITIAL COMMENTS - FREE TEXT/NARRATIVE: History of present illness: [] Days ago the patient had 3 days of diarrhea. First he had 10 liquid stools on the first day. He began to have some blood-tinged on the toilet paper because he was wiping his perianal soft tissues until they were raw. The patient then started having abdominal pain last night and it 7 out of 10 in severity now located in the left lower quadrant only without radiation. There is no associated nausea vomiting fever or chills. The patient had diverticulitis about a year and a half ago and was admitted here. Afterwards he had colonoscopy. The colonoscopy after resolution of his diverticulitis did not show any significant pathology except diverticuli according to him. Review of systems: As per history of present illness and below otherwise all systems reviewed and negative. Past medical history: As per history of present illness and as reviewed below otherwise noncontributory. Surgical history: As per history of present illness and as reviewed below otherwise no ncontributory. Social history: No reported history of drug or alcohol abuse. Family history: As per history of present illness and as reviewed below otherwise noncontributory. Physical exam: Constitutional - well developed, well-nourished and in no acute distress HEENT - normocephalic, no evidence of trauma - external nose and mouth normal - no mass in neck and no JVD - mucosae moist EYES - full EOM, PERRL, no icterus - no evidence of inflammation, injection, or drainage Respiratory - no respiratory distress, equal bilateral expansion, lungs clear to auscultation and no abnormal lung sounds Cardiovascular - Regular Rhythm with S1 and S2 appreciated and no murmur, gallop or rub. GI -good tenderness and guarding left lower quadrant only and no other tenderness and no referred tenderness. Abdomen soft without distension or organomegaly - normal bowel sounds - no rebound Musculoskeletal no gross deformity of long bones or joints - no tenderness, swelling or edema Neurologic - Alert and oriented times four - CN II-XII grossly intact - motor sensory and coordination symmetrically normal Psychiatric - appropriate mood and affect with normal thought content Hematologic - No petechiae or purpura - mucosa appropriate color and sclera not pale - normal nail bed color and refill Integument - no rash or evidence of trauma - normal turgor Diagnostics: [] Therapeutics: [] Impression: [] Plan: [] Definitive disposition and diagnosis as appropriate pending reevaluation and review of above. LLQ, L Hip Pain Score (Numeric/FACES): 7 - Related Data Allergies Allergy/AdvReac Type Severity Reaction Status Date / Time prednisone Allergy Hives Verified 06/22/20 03:22 Home Meds: Home Meds Lisinopril 40 mg PO DAILY 01/17/18 [History] amLODIPine Besylate [Amlodipine Besylate] 10 mg PO DAILY 01/17/18 [History] hydroCHLOROthiazide [Microzide] 12.5 mg PO DAILY 01/17/18 [History] Pomaria Gutierrez [Pomaria Berries] 565 mg PO DAILY 11/28/18 [History] Acetaminophen/HYDROcodone [[place] 325-10 MG] 1 tab PO Q6H PRN #20 tablet 06/22/20 [Rx] Amoxicillin/Clavulanate K [Augmentin 875-125 MG] 1 tab PO Q12HR 10 Days #20 tablet 06/22/20 [Rx] Past Medical History HEENT History: Reports: None Cardiovascular History: Reports: Hypertension Respiratory History: Reports: Sleep Apnea Other Respiratory History: "mild sleep apnea" does not use CPAP, snores when on his back Gastrointestinal History: Reports: Other (See Below) Other Gastrointestinal History: hx diverticulitis, completed 2 weeks of antibiotic therapy Genitourinary History: Reports: None Musculoskeletal History: Reports: Arthritis, Back Pain, Chronic Neurological History: Reports: None Psychiatric History: Reports: None Endocrine/Metabolic History: Reports: Obesity/BMI 30+ Hematologic History: Reports: None Immunologic History: Reports: Other (See Below) Other Immunologic History: 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, completely recovered Oncologic (Cancer) History: Reports: None Dermatologic History: Reports: None - Infectious Disease History Infectious Disease History: Reports: Chicken Pox - Past Surgical History Head Surgeries/Procedures: Reports: None HEENT Surgical History: Reports: None Cardiovascular Surgical History: Reports: None Respiratory Surgical History: Reports: None GI Surgical History: Reports: Bariatric Procedure, Hernia, Inguinal Other GI Surgeries/Procedures: lap band placement 2007, removal of lap band 2016, inguinal hernia repair as a toddler Male Surgical History: Reports: None Endocrine Surgical History: Reports: None Neurological Surgical History: Reports: None Musculoskeletal Surgical History: Reports: Arthroscopic Knee, Shoulder Surgery Other Musculoskeletal Surgeries/Procedures:: left labrum repair, left & right knee arthroscopy, Oncologic Surgical History: Reports: None Social & Family History - Family History Family Medical History: Unobtainable - Caffeine Use Caffeine Use: Reports: Energy Drinks - Living Situation & Occupation Living situation: Reports: , with Family Occupation: Employed ED ROS GENERAL - Review of Systems Review Of Systems: Comprehensive ROS is negative, except as noted in HPI. ED EXAM, GENERAL - Physical Exam Exam: See Below Free Text/Narrative:: My physical exam is in the HPI Course - Vital Signs Last Recorded V/S: Last Vital Signs Temp 36.6 C 06/22/20 03:19 Pulse 97 06/22/20 03:19 Resp 16 06/22/20 03:19 BP 178/94 H 06/22/20 03:19 Pulse Ox 97 06/22/20 03:19 - Orders/Labs/Meds Orders: Active Orders 24 hr Category Date Time Status Sodium Chloride 0.9% [Saline Flush] Med 06/22/20 03:29 Active 10 ml FLUSH ASDIRECTED PRN Sodium Chloride 0.9% [Saline Flush] Med 06/22/20 03:29 Active 2.5 ml FLUSH ASDIRECTED PRN Saline Lock Insert [OM.PC] Stat Oth 06/22/20 03:29 Ordered Medication Orders Sodium Chloride (Sodium Chloride 0.9% 10 Ml Syringe) 10 ml FLUSH ASDIRECTED PRN PRN Reason: Keep Vein Open Last Admin: 06/22/20 03:40 Dose: 10 ml Documented by: DAMIAN Sodium Chloride (Sodium Chloride 0.9% 2.5 Ml Syringe) 2.5 ml FLUSH ASDIRECTED PRN PRN Reason: Keep Vein Open Last Admin: 06/22/20 03:40 Dose: 2.5 ml Documented by: DAMIAN Labs: Laboratory Tests 06/22/20 06/22/20 06/22/20 Range/Units 03:17 03:17 03:20 WBC 9.99 (4.0-11.0) K/uL RBC 5.34 (4.50-5.90) M/uL Hgb 15.3 (13.0-17.0) g/dL Hct 44.7 (38.0-50.0) % MCV 83.7 (80.0-98.0) fL MCH 28.7 (27.0-32.0) pg MCHC 34.2 (31.0-37.0) g/dL RDW Std Deviation 42.0 (28.0-62.0) fl RDW Coeff of Miguelangel 14 (11.0-15.0) % Plt Count 236 (150-400) K/uL MPV 10.40 (7.40-12.00) fL Neut % (Auto) 64.9 (48.0-80.0) % Lymph % (Auto) 25.3 (16.0-40.0) % Porter % (Auto) 8.1 (0.0-15.0) % Eos % (Auto) 1.4 (0.0-7.0) % Baso % (Auto) 0.3 (0.0-1.5) % Neut # (Auto) 6.5 H (1.4-5.7) K/uL Lymph # (Auto) 2.5 H (0.6-2.4) K/uL Porter # (Auto) 0.8 (0.0-0.8) K/uL Eos # (Auto) 0.1 (0.0-0.7) K/uL Baso # (Auto) 0.0 (0.0-0.1) K/uL Nucleated RBC % 0.0 /100WBC Nucleated RBCs # 0 K/uL Sodium 139 (136-148) mmol/L Potassium 3.6 (3.5-5.1) mmol/L Chloride 102 (98-107) mmol/L Carbon Dioxide 27.6 (21.0-32.0) mmol/L BUN 13 (7.0-18.0) mg/dL Creatinine 1.1 (0.8-1.3) mg/dL Est Cr Clr Drug Dosing 105.93 mL/min Estimated GFR (MDRD) > 60.0 ml/min Glucose 106 (74-106) mg/dL Calcium 8.5 (8.5-10.1) mg/dL Total Bilirubin 0.5 (0.2-1.0) mg/dL AST 36 (15-37) IU/L ALT 54 (14-63) IU/L Alkaline Phosphatase 88 (46-116) U/L Total Protein 7.8 (6.4-8.2) g/dL Albumin 3.8 (3.4-5.0) g/dL Globulin 4.0 (2.6-4.0) g/dL Albumin/Globulin Ratio 0.9 (0.9-1.6) Lipase 131 (73-393) U/L Urine Color YELLOW Urine Appearance CLEAR Urine pH 6.0 (5.0-8.0) Ur Specific Sinclair 1.025 (1.001-1.035) Urine Protein 100 H (NEGATIVE) mg/dL Urine Glucose (UA) NEGATIVE (NEGATIVE) mg/dL Urine Ketones NEGATIVE (NEGATIVE) mg/dL Urine Occult Blood NEGATIVE (NEGATIVE) Urine Nitrite NEGATIVE (NEGATIVE) Urine Bilirubin NEGATIVE (NEGATIVE) Urine Urobilinogen 0.2 (<2.0) EU/dL Ur Leukocyte Esterase NEGATIVE (NEGATIVE) Urine RBC NONE SEEN (0-2/HPF) Urine WBC 0-2 (0-5/HPF) Ur Epithelial Cells RARE (NONE-FEW) Urine Bacteria FEW (NEGATIVE) Urine Mucus LIGHT (NONE-MOD) Meds: Medications Generic Name Dose Route Start Last Admin Trade Name Freq PRN Reason Stop Dose Admin Sodium Chloride 10 ml 06/22/20 03:29 06/22/20 03:40 Sodium Chloride 0.9% 10 Ml Syringe FLUSH 10 ml ASDIRECTED PRN Administration Keep Vein Open Sodium Chloride 2.5 ml 06/22/20 03:29 06/22/20 03:40 Sodium Chloride 0.9% 2.5 Ml Syringe FLUSH 2.5 ml ASDIRECTED PRN Administration Keep Vein Open Discontinued Medications Generic Name Dose Route Start Last Admin Trade Name Freq PRN Reason Stop Dose Admin Amoxicillin/Clavulanate Potassium 1 tab 06/22/20 04:31 Amoxicillin/Clavulanate K 875-125 Mg Tab PO 06/22/20 04:32 ONETIME ONE Fentanyl 50 mcg 06/22/20 03:29 06/22/20 03:40 Fentanyl 50 Mcg/Ml Sdv IVPUSH 06/22/20 03:30 50 mcg ONETIME ONE Administration Sodium Chloride 1,000 mls @ 1,000 mls/hr 06/22/20 03:31 06/22/20 03:40 Normal Saline IV 06/22/20 04:30 1,000 mls/hr .Bolus ONE Administration Ondansetron HCl 4 mg 06/22/20 03:29 06/22/20 03:40 Ondansetron 4 Mg/2 Ml Sdv IVPUSH 06/22/20 03:30 4 mg ONETIME ONE Administration Departure - Departure Time of Disposition: 04:33 Disposition: Home, Self-Care 01 Condition: Good Clinical Impression: Acute diverticulitis - Discharge Information Prescriptions: Amoxicillin/Clavulanate K [Augmentin 875-125 MG] 1 tab PO Q12HR 10 Days #20 tablet Acetaminophen/HYDROcodone [[place] 325-10 MG] 1 tab PO Q6H PRN #20 tablet PRN Reason: Pain (Severe 7-10) Instructions: Diverticulitis, [id number] Referrals: Dragan Waite MD [Primary Care Provider] - Forms: ED Department Discharge Additional Instructions: Turn if sudden worse pain, fever and chills, unable to tolerate the medicine, or any worsening of your symptoms. [facility] [address] [place] [address] [place] [address] The following information is given to patients seen in the emergency department who are being discharged to home. This information is to outline your options for follow-up care. We provide all patients seen in our emergency department with a follow-up referral. The need for follow-up, as well as the timing and circumstances, are variable depending upon the specifics of your emergency department visit. If you don't have a primary care physician on staff, we will provide you with a referral. We always advise you to contact your personal physician following an emergency department visit to inform them of the circumstance of the visit and for follow-up with them and/or the need for any referrals to a consulting specialist. The emergency department will also refer you to a specialist when appropriate. This referral assures that you have the opportunity for follow-up care with a specialist. All of these measure are taken in an effort to provide you with optimal care, which includes your follow-up. Under all circumstances we always encourage you to contact your private physician who remains a resource for coordinating your care. When calling for follow-up care, please make the office aware that this follow-up is from your recent emergency room visit. If for any reason you are refused follow-up, please contact the [facility] Emergency Department at and asked to speak to the emergency department charge nurse. Sepsis Event Note (ED) - Focused Exam Vital Signs: Vital Signs Temp Pulse Resp BP Pulse Ox 06/22/20 03:19 36.6 C 97 16 178/94 H 97 - My Orders Last 24 Hours: My Active Orders 06/22/20 03:29 Sodium Chloride 0.9% [Saline Flush] 10 ml FLUSH ASDIRECTED PRN Sodium Chloride 0.9% [Saline Flush] 2.5 ml FLUSH ASDIRECTED PRN Saline Lock Insert [OM.PC] Stat - Assessment/Plan Last 24 Hours: My Active Orders 06/22/20 03:29 Sodium Chloride 0.9% [Saline Flush] 10 ml FLUSH ASDIRECTED PRN Sodium Chloride 0.9% [Saline Flush] 2.5 ml FLUSH ASDIRECTED PRN Saline Lock Insert [OM.PC] Stat
[2020-06-22] MEDS ORDERED: Sodium Chloride 0.9% 1,000 ML IV ONE (03:31)
[2020-06-22 03:54] LABS: BLOOD UREA NITROGEN,BUN 13 mg/dL (7.0-18.0); CARBON DIOXIDE,CO2 27.6 mmol/L (21.0-32.0); CHLORIDE,CL 102 mmol/L (98-107); GLUCOSE RANDOM 106 mg/dL (74-106); LIPASE 131 U/L (73-393); POTASSIUM,K 3.6 mmol/L (3.5-5.1); SODIUM,NA 139 mmol/L (136-148)
[2020-06-22] MEDS ORDERED: Amoxicillin/Clavulanate K 875-125 MG Tab PO ONE (04:31)
[2020-06-22 04:45] VITALS: PULSE 80
[2020-06-22 04:46] VITALS: BP 138/89
== END 2020-06-22 04:46 | disposition home or self-care (01) ==
LOC: MW.ED 03:06
DX: K57.92 Diverticulitis of intestine, part unspecified, without perforation or abscess without bleeding (principal); I10 Essential (primary) hypertension; E66.9 Obesity, unspecified; Z68.39 Body mass index [BMI] 39.0-39.9, adult; Z79.899 Other long term (current) drug therapy; Z88.8 Allergy status to other drugs, medicaments and biological substances
CPT/HCPCS: 36415; 80053; 81001; 83690; 85025; 96374; 96375; 99284; A9270; J2405; J3010; J7030; 99283

== ENCOUNTER 2021-03-19 21:16 | Emergency (ER) | payer BC ==
[2021-03-19 21:40] VITALS: BP 201/103; PULSE 103
--- NOTE | 2021-03-19 21:50 | EDM.PDOC ---
ED HPI GENERAL MEDICAL PROBLEM - General Chief Complaint: ENT Problem Stated Complaint: EAR PAIN Time Seen by Provider: 03/19/21 21:20 Source of Information: Reports: Patient History Limitations: Reports: No Limitations - History of Present Illness INITIAL COMMENTS - FREE TEXT/NARRATIVE: HISTORY AND PHYSICAL: History of present illness: Patient is a 35-year-old male who presents emergency room today with concern of bilateral ear pain since today. Patient states he has not taken anything for his symptoms. Denies any trauma or injury. Patient denies fever, chills, chest pain, shortness of breath, or cough. Denies headache, neck stiff ness, change in vision, syncope, or near syncope. Denies nausea, vomiting, abdominal pain, diarrhea, constipation, or dysuria. Has not no jeff any blood in urine or stool. Patient has been eating and drinking appropriately. Review of systems: As per history of present illness and below otherwise all systems reviewed and negative. Past medical history: As per history of present illness and as reviewed below otherwise noncontributory. Surgical history: As per history of present illness and as reviewed below otherwise noncontribut ory. Social history: See social history for further information Family history: As per history of present illness and as reviewed below otherwise noncontributory. Physical exam: General: Patient is alert, oriented, and in no acute distress. Patient sitting comfortably on exam table. Patient is hypertensive 200s over 100s, otherwise vitally stable and reviewed by me. HEENT: Bilateral TMs are erythematous and bulging. Right external auditory canal is erythematous with mild edema and a small amount of debris. Patient does have some pain to palpation of the right sided tragus but negative mastoid tenderness bilaterally. Otherwise, atraumatic, normocephalic, pupils equal and reactive bilaterally, negative for conjunctival pallor or scleral icterus, mucous membranes moist, throat clear, neck supple, nontender, trachea midline. No drooling or trismus noted. No meningeal signs. No hot potato voice noted. Lungs: Clear to auscultation, breath sounds equal bilaterally, chest nontender. Heart: S1S2, regular rate and rhythm without overt murmur Abdomen: Soft, nondistended, nontender. Negative for masses or hepatosplenomegaly. Negative for costovertebral tenderness. Pelvis: Stable nontender. Genitourinary: Deferred. Rectal: Deferred. Skin: Intact, warm, dry. No lesions or rashes noted. Extremities: Atraumatic, negative for cords or calf pain. Neurovascular unremarkable. Neuro: Awake, alert, oriented. Cranial nerves II through XII unremarkable. Cerebellum unremarkable. Motor and sensory unremarkable throughout. Exam nonfocal. Medical Decision Making: I did offer evaluation for elevated BP but he declines. All risks vs benefits discussed with patient and expresses understanding. Strict return precautions thoroughly discussed with patient. Discussed importance for follow-up with a primary care provider. Voices understanding and is agreeable to plan of care. Denies any further questions or concerns at this time. Diagnostics: None Therapeutics: None Prescription: Tramadol No. 15, Augmentin, Cortisporin otic Impression: Bilateral acute otitis media Otitis externa, right Hypertension Plan: 1. Take medication as prescribed. You can also alternate ibuprofen and Tylenol as directed for pain and discomfort. 2. Follow-up with a primary care provider as discussed. Return to the ED as needed and as discussed. Definitive disposition and diagnosis as appropriate pending reevaluation and review of above. ear pain bilaterally Pain Score (Numeric/FACES): 8 - Related Data Allergies Allergy/AdvReac Type Severity Reaction Status Date / Time prednisone Allergy Hives Verified 03/19/21 21:38 Home Meds: Home Meds Lisinopril 40 mg PO DAILY 01/17/18 [History] amLODIPine Besylate [Amlodipine Besylate] 10 mg PO DAILY 01/17/18 [History] hydroCHLOROthiazide [Microzide] 12.5 mg PO DAILY 01/17/18 [History] Ogema Gutierrez [Ogema Berries] 565 mg PO DAILY 11/28/18 [History] Past Medical History HEENT History: Reports: Otitis Media Cardiovascular History: Reports: Hypertension Respiratory History: Reports: Sleep Apnea Other Respiratory History: "mild sleep apnea" does not use CPAP, snores when on his back Gastrointestinal History: Reports: Other (See Below) Other Gastrointestinal History: hx diverticulitis, completed 2 weeks of antibiotic therapy Genitourinary History: Reports: None Musculoskeletal History: Reports: Arthritis, Back Pain, Chronic Neurological History: Reports: None Psychiatric History: Reports: None Endocrine/Metabolic History: Reports: Obesity/BMI 30+ Hematologic History: Reports: None Immunologic History: Reports: Other (See Below) Other Immunologic History: 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, completely recovered Oncologic (Cancer) History: Reports: None Dermatologic History: Reports: None - Infectious Disease History Infectious Disease History: Reports: Chicken Pox - Past Surgical History Head Surgeries/Procedures: Reports: None HEENT Surgical History: Reports: None Cardiovascular Surgical History: Reports: None Respiratory Surgical History: Reports: None GI Surgical History: Reports: Bariatric Procedure, Hernia, Inguinal Other GI Surgeries/Procedures: lap band placement 2007, removal of lap band 2017, inguinal hernia repair as a toddler Male Surgical History: Reports: None Endocrine Surgical History: Reports: None Neurological Surgical History: Reports: None Musculoskeletal Surgical History: Reports: Arthroscopic Knee, Shoulder Surgery Other Musculoskeletal Surgeries/Procedures:: left labrum repair, left & right knee arthroscopy, Oncologic Surgical History: Reports: None Social & Family History - Family History Family Medical History: Unobtainable - Tobacco Use Tobacco Use Status *Q: Never Tobacco User - Caffeine Use Caffeine Use: Reports: Energy Drinks - Recreational Drug Use Recreational Drug Use: No - Living Situation & Occupation Living situation: Reports: , with Family Occupation: Employed ED ROS GENERAL - Review of Systems Review Of Systems: Comprehensive ROS is negative, except as noted in HPI. ED EXAM, GENERAL - Physical Exam Exam: See Below (see dictation) Course - Vital Signs Last Recorded V/S: Last Vital Signs Temp 97.4 F 03/19/21 21:39 Pulse 103 H 03/19/21 21:39 Resp 20 03/19/21 21:39 BP 201/103 H 03/19/21 21:39 Pulse Ox 97 03/19/21 21:39 Departure - Departure Time of Disposition: 21:50 Disposition: Home, Self-Care 01 Clinical Impression: Acute otitis media, Otitis externa Hypertension Qualifiers: Hypertension type: essential hypertension Qualified Code(s): I10 - Essential (primary) hypertension - Discharge Information Forms: ED Department Discharge Additional Instructions: The following information is given to patients seen in the emergency department who are being discharged to home. This information is to outline your options for follow-up care. We provide all patients seen in our emergency department with a follow-up referral. The need for follow-up, as well as the timing and circumstances, are variable depending upon the specifics of your emergency department visit. If you don't have a primary care physician on staff, we will provide you with a referral. We always advise you to contact your personal physician following an emergency department visit to inform them of the circumstance of the visit and for follow-up with them and/or the need for any referrals to a consulting specialist. The emergency department will also refer you to a specialist when appropriate. This referral assures that you have the opportunity for follow-up care with a specialist. All of these measure are taken in an effort to provide you with optimal care, which includes your follow-up. Under all circumstances we always encourage you to contact your private physician who remains a resource for coordinating your care. When calling for follow-up care, please make the office aware that this follow-up is from your recent emergency room visit. If for any reason you are refused follow-up, please contact the [facility] Emergency Department at and asked to speak to the emergency department charge nurse. [facility] [address] [place] [id number] [facility] [address] [place] [id number] 1. Take medication as prescribed. You can also alternate ibuprofen and Tylenol as directed for pain and discomfort. 2. Follow-up with a primary care provider as discussed. Return to the ED as needed and as discussed. Sepsis Event Note (ED) - Evaluation Sepsis Screening Result: No Definite Risk - Focused Exam Vital Signs: Vital Signs Temp Pulse Resp BP Pulse Ox 03/19/21 21:39 97.4 F 103 H 20 201/103 H 97
== END 2021-03-19 22:08 | disposition home or self-care (01) ==
LOC: MW.ED 21:16
DX: H60.91 Unspecified otitis externa, right ear (principal); H66.93 Otitis media, unspecified, bilateral; I10 Essential (primary) hypertension; Z88.8 Allergy status to other drugs, medicaments and biological substances; E66.9 Obesity, unspecified; Z68.39 Body mass index [BMI] 39.0-39.9, adult; Z79.899 Other long term (current) drug therapy
CPT/HCPCS: 99282